=== PATIENT | male | born 1965 | race Asian ===

== ENCOUNTER 2017-12-11 14:22 | Inpatient (IN) | payer OTHER ==
[2017-12-11 14:28] VITALS: TEMP 98.3
[2017-12-11] MEDS ORDERED: LABETALOL HCL 5 MG/1 ML (100MG/20 ML VIAL) IVPUSH ONE (14:38)
--- NOTE | 2017-12-11 14:50 | PDOC ---
History of Present Illness - General Chief Complaint: CVA/TIA Stated Complaint: CVA/TIA Time Seen by Provider: 12/11/17 14:29 - History of Present Illness Initial Comments: 12/11/17 14:45 MR. iPerre is a 52 yo male w/ pmh of HLD, HTN, DM who presents complaining of a 1 hour 20 minute history of left sided vision loss. He reports it started precisely at 1300 while he was eating lunch and has persisted. He is currently unable to see anything out of the left side of either eye. The patient denies chest pain, shortness of breath, headache and dizziness. Denies fever, chills, nausea, vomit, diarrhea and constipation. Denies dysuria, frequency, urgency and hematuria. Allergies: NKDA Past History - Past Medical History Allergies/Adverse Reactions: Allergies Allergy/AdvReac Type Severity Reaction Status Date / Time No Known Allergies Allergy Verified 12/11/17 14:28 Home Medications: Ambulatory Orders Atorvastatin Ca [Lipitor] 40 mg PO HS 11/21/15 Losartan Potassium 50 mg PO HS 11/21/15 Metformin HCl 500 mg PO DAILY 11/21/15 Cardiac Disorders: Yes (VALVE DISEASE) COPD: No Diabetes: Yes (NIDDM) HTN: Yes Hypercholesterolemia: Yes Liver Disease: Yes (FATTY LIVER) - Surgical History Neurologic Surgery: Yes (BACK SURGERY L4-L5, RIGHT WRIST ORIF) Orthopedic Surgery: Yes (SURGERY OF RT HAND FX) - Suicide/Smoking/Psychosocial Hx Smoking History: Current some day smoker Have you smoked in the past 12 months: Yes Number of Cigarettes Smoked Daily: 2 If you are a former smoker, when did you quit?: 2013 Information on smoking cessation initiated: No Hx Alcohol Use: No Drug/Substance Use Hx: No Substance Use Type: None Review of Systems - Review of Systems Comments:: 12/11/17 14:47 GENERAL/CONSTITUTIONAL: No fever or chills. No weakness. HEAD, EYES, EARS, NOSE AND THROAT: +Left sided vision loss for 1 hour 20 minutes. CARDIOVASCULAR: No chest pain or shortness of breath RESPIRATORY: No cough, wheezing, or hemoptysis. GASTROINTESTINAL: No nausea, vomiting, diarrhea or constipation. GENITOURINARY: No dysuria, frequency, or change in urination. MUSCULOSKELETAL: No joint or muscle swelling or pain. No neck or back pain. SKIN: No rash NEUROLOGIC: No headache, vertigo, loss of consciousness, or change in strength/ sensation. ENDOCRINE: No increased thirst. No abnormal weight change HEMATOLOGIC/LYMPHATIC: No anemia, easy bleeding, or history of blood clots. ALLERGIC/IMMUNOLOGIC: No hives or skin allergy. *Physical Exam - Vital Signs Last Vital Signs Temp Pulse Resp BP Pulse Ox 98.3 F 69 20 195/69 100 12/11/17 14:26 12/11/17 14:26 12/11/17 14:26 12/11/17 14:26 12/11/17 14:26 - Physical Exam Comments: 12/11/17 14:48 GENERAL: +Minor slurring of words. Awake, alert, and fully oriented HEAD: No signs of trauma, normocephalic, atraumatic EYES: Bilateral left sided field defect. ENT: Auricles normal inspection, hearing grossly normal, nares patent, oropharynx clear without exudates. Moist mucosa NECK: Normal ROM, supple, no lymphadenopathy, JVD, or masses LUNGS: No distress, speaks full sentences, clear to auscultation bilaterally HEART: Regular rate and rhythm, normal S1 and S2, no murmurs, rubs or gallops, peripheral pulses normal and equal bilaterally. ABDOMEN: Soft, nontender, normoactive bowel sounds. No guarding, no rebound. No masses EXTREMITIES: Normal inspection, Normal range of motion, no edema. No clubbing or cyanosis. NEUROLOGICAL: Cranial nerves II through XII grossly intact. Normal speech, normal gait, no focal sensorimotor deficits SKIN: Warm, Dry, normal turgor, no rashes or lesions noted. 12/11/17 14:49 NIH Stroke Scale - Last Known Well Date/Time & Onset Date Last Known Well: 12/11/17 Time Last Known Well: 13:00 - Initial Evaluation Level of consciousness: Alert Ask patient the month and their age: Answers both correctly Ask patient to open & close eyes; make fist and let go: Obeys both correctly Best gaze (horizontal eye movement): Normal Visual field testing: Bilateral hemianopia (blind including cortical blindness) Facial paresis (Show teeth/raise eyebrows/close eyes tight): Normal symmetrical movement Motor Function: Left Arm: Normal Motor Function: Right Arm: Normal (extends arm 90 (or 45) degrees for 10 seconds without drift Motor Function: Left Leg: Normal (extends leg 30 degrees for 5 seconds without drift) Motor Function: Right Leg: Normal (extends leg 30 degrees for 5 seconds without drift) Limb Ataxia: No ataxia Sensory(Use pinprick test arms,legs,trunk,face/side to side): Normal Best language (Describe picture, name items, read sentences): No Aphasia Dysarthria (read several words): Mild to moderate slurring of words Extinction and Inattention: No abnormality - Total Score NIH Stroke Scale Score: 4 tPA Exclusion Checklist 0-3hr - Time Elapsed Date last known well: 12/11/17 Time last known well: 13:00 Elaspsed time: Day(s) and 4 Hour(s) and 39 Minutes - Thrombolytic Therapy Candidate Is the patient eligible for Thrombolytic Therapy?: Yes - Exclusion Criteria 0-3hr SBP greater than 185 or DBP greater than 110mmHg despite tx: No Recent IC/spinal surgery,head trauma or stroke w/in last 3mo: No Hx of previous IC hemorrhage, IC neoplasm, AVM or aneurysm: No Active internal bleeding: No Blding diathesis(low plt ct, inc PTT,INR>1.7 or use of NOAC): No Symptoms suggest subarachnoid hemorrhage: No CT demonstrates multilobar infarct(>1/3 cerebral hemiphere): No Arterial puncture at noncompressible site in previous 7 days: No Blood glucose concentration less than 50mg/dL (2.7mmol/L): No - Relative Exclusion Criteria 0-3h Life expectancy <1yr/severe co-morbid illness/CAR SALESMAN on admit: No : No Patient/family refused: No Rapid improvement: No Stroke severity too mild: No Recent acute IL (w/in previous 3 months): No Seizure at onset with postictal residual neuro impairments: No Major surgery or serious trauma w/in previous 14 days: No Recent GI or hemorrhage (w/in previous 21 days): No Critical Care Time/MDM Note - Medical Decision Making Note: 12/11/17 16:09 Mr. Pierre is a 52 yo male w/ pmh as above who presents w/ acute onset left sided vision impairment concerning for stroke. No hemorrhage noted on CT. Neurology consulted; due to visual nature of impairment TPA recommended for acute treatment. Agree with assessment; discussed with patient and family and obtained consent. TPA given. Neurology recommended Brain MRA for further evaluation. Patient reporting no resolution of symptoms at this time. 12/11/17 17:19 Patient complaining of headache with difficulty reporting his birthday. CT Head ordered for further evaluation. 12/11/17 17:39 No hugo bleed observable (by me) during head CT, will await radiologist confirmation. Patient now able to report birthday and reports minor resolution of headache. Head/Neck CTA performed after head CT. Patient transferred to ICU. Discharge Disposition - Diagnosis Cerebrovascular accident (CVA) Qualifiers: CVA mechanism: unspecified Qualified Code(s): I63.9 - Cerebral infarction, unspecified - Discharge Dispostion Admit: Yes - Referrals - Patient Instructions - Post Discharge Activity
[2017-12-11] MEDS ORDERED: ALTEPLASE 100 MG VIAL IVPB ONE (14:52)
[2017-12-11] MEDS ORDERED: LABETALOL HCL 5 MG/1 ML (200MG/40ML VIAL) IVPB ONE (14:55)
[2017-12-11] MEDS ORDERED: ALTEPLASE 100MG 100 MG IVPB ONE (14:56)
[2017-12-11 15:16] LABS: BASO % 0.6 % (0-2.0); EOS % 4.5 % (0-4.5); HEMATOCRIT 44.3 % (35.4-49); HEMOGLOBIN 14.4 GM/dL (11.7-16.9); LYMPH % 28.2 % (8-40); MCH 29.4 pg (25.7-33.7); MCHC 32.4 g/dl (32.0-35.9); MEAN CELL VOLUME 90.7 fl (80-96); MEAN PLT VOLUME 10.4 fl (7.5-11.1); MONO % 8.4 % (3.8-10.2); NEUT % 58.3 % (42.8-82.8); PLATELET COUNT 204 K/MM3 (134-434); RBC 4.89 M/mm3 (4.00-5.60); RDW 12.7 % (11.9-15.9); WHITE BLOOD COUNT 7.9 K/mm3 (4.0-10.0)
[2017-12-11 15:23] LABS: INR 1.04 (0.82-1.09); PROTHROMBIN TIME (PATIENT) 11.7 SEC (9.98-11.88)
[2017-12-11 15:30] LABS: ALBUMIN 3.7 g/dl (3.4-5.0); ANION GAP 2 (8-16); BILIRUBIN,TOTAL 0.7 mg/dL (0.2-1.0); BLOOD UREA NITROGEN 13 mg/dL (7-18); CALCIUM 8.2 mg/dL (8.5-10.1); CHLORIDE 103 mmol/L (98-107); CHOLESTEROL 179 mg/dL (50-200); CO2 31 mmol/L (21-32); CREATININE 0.7 mg/dL (0.7-1.3); GLUCOSE,RANDOM 181 mg/dL (74-106); LDL CHOLESTEROL (ONLY SJRH) 96 mg/dL (5-100); SGPT/ALT 29 U/L (12-78); SODIUM 136 mmol/L (136-145); TOT PROT 7.3 g/dl (6.4-8.2); TRIGLYCERIDES 157 mg/dL (35-160)
--- NOTE | 2017-12-11 15:30 | PDOC ---
Attending Attestation - Resident Resident Name: Lars Lambert - ED Attending Attestation I have performed the following: I have examined & evaluated the patient, The case was reviewed & discussed with the resident, I agree w/resident's findings & plan, Exceptions are as noted - HPI HPI: 12/11/17 15:29 52-year-old male with history of diabetes, hypertension, borderline for cholesterolemia presents with acute onset of right visual hemianopsia at 1 PM while eating lunch. No headache, questionable slurred speech noticed by his , and nurse. No other chest pain or palpitations, no motor deficits. Patient seen immediately upon arrival at 2:28 PM - Physicial Exam PE: 12/11/17 15:30 Elevated blood pressure at triage Exam consistent with right hemianopsia Very subtle slurred speech Motor 5 out of 5 4 extremities, gait stable - Critical Care Time Total Critical Care Time: 95 Critical Care Statement: The care of this patient involved high complexity decision making to prevent further life threatening deterioration of the patient 's condition and/or to evaluate & treat vital organ system(s) failure or risk of failure. - Medical Decision Making 12/11/17 15:31 Patient seen and evaluated with the resident. I agree with the overall evaluation, assessment, and management with the following summary of visit: 52-year-old male with risk factors for CVA presents with acute onset right visual field deficit at 1 PM, about 1.5 hours prior to arrival. Code sood activated Case discussed with Dr. Cooper of neurology, CT shows no acute pathology, agrees with TPA given the significant deficit in this otherwise high functioning 52-year-old male All risks and benefits were discussed with the patient and his , who was at the bedside. They agree with proceeding with TPA. Patient was given labetalol IV given his initially elevated blood pressure at triage. His blood pressure improved to 150 systolic. TPA bolus was administered at 3 PM and drip began according to protocol We'll proceed with ICU admission, neurology at bedside Heart Score/ECG Review #1 ECG reviewed & interpreted by me at: 15:14 General ECG Interpretation: Sinus Rhythm, Normal Rate (60), Normal Intervals ( qtc 416, LVH), No acute ischemic changes (early repolarization abnormality) NIH Stroke Scale - Last Known Well Date/Time & Onset Date Last Known Well: 12/11/17 Time Last Known Well: 13:00 - Initial Evaluation Level of consciousness: Alert Ask patient the month and their age: Answers both correctly Ask patient to open & close eyes; make fist and let go: Obeys both correctly Best gaze (horizontal eye movement): Normal Visual field testing: Complete hemianopia Facial paresis (Show teeth/raise eyebrows/close eyes tight): Normal symmetrical movement Motor Function: Left Arm: Normal Motor Function: Right Arm: Normal (extends arm 90 (or 45) degrees for 10 seconds without drift Motor Function: Left Leg: Normal (extends leg 30 degrees for 5 seconds without drift) Motor Function: Right Leg: Normal (extends leg 30 degrees for 5 seconds without drift) Limb Ataxia: No ataxia Sensory(Use pinprick test arms,legs,trunk,face/side to side): Normal Best language (Describe picture, name items, read sentences): No Aphasia Dysarthria (read several words): Mild to moderate slurring of words Extinction and Inattention: No abnormality - Total Score NIH Stroke Scale Score: 3 tPA Exclusion Checklist 0-3hr - Thrombolytic Therapy Candidate Is the patient eligible for Thrombolytic Therapy?: Yes - Exclusion Criteria 0-3hr SBP greater than 185 or DBP greater than 110mmHg despite tx: No Recent IC/spinal surgery,head trauma or stroke w/in last 3mo: No Hx of previous IC hemorrhage, IC neoplasm, AVM or aneurysm: No Active internal bleeding: No Blding diathesis(low plt ct, inc PTT,INR>1.7 or use of NOAC): No Symptoms suggest subarachnoid hemorrhage: No CT demonstrates multilobar infarct(>1/3 cerebral hemiphere): No Arterial puncture at noncompressible site in previous 7 days: No Blood glucose concentration less than 50mg/dL (2.7mmol/L): No - Relative Exclusion Criteria 0-3h Life expectancy <1yr/severe co-morbid illness/SCIENTIFIC LINGUIST on admit: No : No Patient/family refused: No Rapid improvement: No Stroke severity too mild: No Recent acute CO (w/in previous 3 months): No Seizure at onset with postictal residual neuro impairments: No Major surgery or serious trauma w/in previous 14 days: No Recent GI or hemorrhage (w/in previous 21 days): No
[2017-12-11 15:31] LABS: ALK PHOS 74 U/L (45-117); HDL CHOLESTEROL 70 mg/dL (40-60)
[2017-12-11 15:42] LABS: URINE APPEARANCE CLEAR; URINE BILIRUBIN NEGATIVE (NEGATIVE); URINE BLOOD 1+ (NEGATIVE); URINE COLOR COLORLESS; URINE GLUCOSE (UA) 2+ (NEGATIVE); URINE KETONE NEGATIVE (NEGATIVE); URINE LEUK ESTERASE NEGATIVE (NEGATIVE); URINE NITRITE NEGATIVE (NEGATIVE); URINE PROTEIN NEGATIVE (NEGATIVE); URINE UROBILINOGEN NEGATIVE mg/dL (0.2-1.0)
[2017-12-11 15:48] LABS: POTASSIUM 4.4 mmol/L (3.5-5.1)
[2017-12-11 15:49] LABS: SGOT/AST 17 U/L (15-37)
--- NOTE | 2017-12-11 15:52 | CON.NEURO ---
Consult - Alcohol/Substance Use Hx Alcohol Use: No - Smoking History Smoking history: Current some day smoker Have you smoked in the past 12 months: Yes Aproximately how many cigarettes per day: 2 If you are a former smoker, when did you quit?: 2013 Home Medications - Allergies Allergies/Adverse Reactions: Allergies Allergy/AdvReac Type Severity Reaction Status Date / Time No Known Allergies Allergy Verified 12/11/17 14:28 - Home Medications Home Medications: Ambulatory Orders Atorvastatin Ca [Lipitor] 40 mg PO HS 11/21/15 Losartan Potassium 50 mg PO HS 11/21/15 Metformin HCl 500 mg PO DAILY 11/21/15 Physical Exam-Neuro Vital Signs: Vital Signs Temperature 98.3 F 12/11/17 14:26 Pulse Rate 69 12/11/17 14:26 Respiratory Rate 20 12/11/17 14:26 Blood Pressure 195/69 12/11/17 14:26 O2 Sat by Pulse Oximetry (%) 99 12/11/17 15:20 Labs: CBC, BMP 12/11/17 15:00 INR, PTT INR 1.04 (0.82-1.09) 12/11/17 15:00 Assessment/Plan cc unable to see at 1 pm HPI 52 year old male history of HLD, HTN, DM , no stroke or mi in past. He was eating his lunch suddenly he felt difficulty vision. He was brought to hospital and found to have right sided hemianospsia. His initial ct scan was normal. He was started on tpa . He also felt to have speech difficulty. His is nurse at [employer]. His initial blood pressure was high and he was given iv labetalol. NKDA PHM as above SH,ROS ,FH reviewed in chart Ambulatory Orders Aspirin Coated [Ecotrin -] 81 mg PO PRN PRN 11/21/15 Atorvastatin Ca [Lipitor] 20 mg PO HS 11/21/15 Losartan Potassium 25 mg PO HS 11/21/15 Metformin HCl 500 mg PO DAILY 11/21/15 Acetaminophen W/ Codeine #3 [Tylenol # 3] 1 - 2 combo PO Q4H PRN #15 tablet MDD 6 03/26/16 Cyclobenzaprine HCl [Flexeril] 10 mg PO TID #15 tablet 03/26/16 Glimepiride [Amaryl -] 2 mg PO DAILY 03/26/16 Neurological Examination Alert oriented x 3, able to follow command, feel speech is slightly dysarthric and left sided facial droopiness. eomi, pupils is reactive, right sided hemianospia ? left facial droopiness, moving all extremity and sensation is normal NIH SCORE is 3 AND able to swallow CT unreemarkable Assessment, Suspect left occopital infarct, risk factor include DM,HTN HYperlipidemia. Plan-- Patient was given tpa , given hemianopsia would create disability, though nih score was low - ICU admission, bp and neuro checks - no aspirin for 24 hour - repeat ct head tomorrow am - CTA of neck for large vessel occlusion - Increase lipitor to 80 mg once a day - Speech, PT and dvt prophylaxis Stroke Education would continue to follow with primary team Robina for consult
--- NOTE | 2017-12-11 16:02 | EKG ---
Test Reason : Blood Pressure : / mmHG Vent. Rate : 060 BPM Atrial Rate : 060 BPM P-R Int : 160 ms QRS Dur : 104 ms QT Int : 416 ms P-R-T Axes : -01 038 009 degrees QTc Int : 416 ms NORMAL SINUS RHYTHM VOLTAGE CRITERIA FOR LEFT VENTRICULAR HYPERTROPHY ABNORMAL ECG WHEN COMPARED WITH ECG OF 25-JAN-2008 13:01, NONSPECIFIC T WAVE ABNORMALITY NOW EVIDENT IN LATERAL LEADS Confirmed by DARIEN LOUIE, CAMELIA ([id number]) on 12/11/2017 4:01:50 PM Referred By: Confirmed By:CAMELIA LEDEZMA MD
[2017-12-11] MEDS ORDERED: ACETAMINOPHEN 325 MG TABLET (FP) PO PRN (16:24)
[2017-12-11] MEDS ORDERED: INSULIN SLIDING SCALE (NOVOLOG) 1 VIAL SQ SCH (16:30)
--- NOTE | 2017-12-11 16:33 | HP ---
Admitting History and Physical - Primary Care Physician PCP: Albert Miller - Admission Chief Complaint: I can't see the right side History of Present Illness: Mr Pierre is a very pleasant 52 year old male who comes in with loss of vision on the right side. He says he was at work when he suddenly could not see his right field of vision. It was both eyes. Aside from this he had no other concerns. He denies lightheadedness, dizziness, confusion, difficulty word finding or speaking, loss of hearing or hearing changes, chest pain, shortness of breath, nausea, vomiting, abdominal pain, constipation, diarrhea, difficulty or pain on urination, incontinence, swelling, weakness, or paresthesias. He was hypertensive in the ED and received labetalol. He also received tPA in the ED as well. He continues to have loss of his right visual lombardo. History Source: Patient Limitations to Obtaining History: No Limitations - Past Medical History Cardiovascular: Yes: HTN, Hyperlipdemia Endocrine: Yes: Diabetes Mellitus - Past Surgical History Past Surgical History: Yes: Laminectomy - Smoking History Smoking history: Current some day smoker Have you smoked in the past 12 months: Yes Aproximately how many cigarettes per day: 2 If you are a former smoker, when did you quit?: 2014 - Alcohol/Substance Use Hx Alcohol Use: Yes (occasional) History of Substance Use: reports: None - Social History Usual Living Arrangement: Yes: With Spouse ADL: Independent History of Recent Travel: No Home Medications - Allergies Allergies/Adverse Reactions: Allergies Allergy/AdvReac Type Severity Reaction Status Date / Time No Known Allergies Allergy Verified 12/11/17 14:28 - Home Medications Home Medications: Ambulatory Orders Atorvastatin Ca [Lipitor] 40 mg PO HS 11/21/15 Losartan Potassium 50 mg PO HS 11/21/15 Metformin HCl 500 mg PO DAILY 11/21/15 Family Disease History - Family Disease History Family Disease History: Diabetes: Brother (HTN, HLD), Heart Disease: Brother Review of Systems Findings/Remarks: Full review of systems obtained, as per HPI and otherwise negative Physical Examination Vital Signs: Vital Signs Temperature 36.8 C 12/11/17 14:26 Pulse Rate 60 12/11/17 16:15 Respiratory Rate 16 12/11/17 16:15 Blood Pressure 135/49 12/11/17 16:15 O2 Sat by Pulse Oximetry (%) 100 12/11/17 16:15 Constitutional: Yes: Well Nourished, No Distress, Calm Eyes: Yes: Conjunctiva Clear, EOM Intact, PERRL, Other (R visual loss) HENT: Yes: Atraumatic, Normocephalic Cardiovascular: Yes: Regular Rate and Rhythm. No: Gallop, Murmur, Rub Respiratory: Yes: Regular, CTA Bilaterally. No: Rales, Rhonchi, Wheezes Gastrointestinal: Yes: Normal Bowel Sounds, Soft. No: Distention, Tenderness Extremities: Yes: WNL Edema: No ...Motor Strength: WNL Labs: CBC, BMP 12/11/17 15:00 12/11/17 15:00 Imaging - Results Cat Scan: Report Reviewed, Image Reviewed Problem List - Problems (1) Cerebrovascular accident (CVA) Assessment/Plan: -case d/w neurology -received tPA in the ED -still with visual loss -admit to ICU -speech and physical therapy consult -holding aspirin secondary to tPA given -increase lipitor to 80mg -ECHO and carotid ultrasound ordered -repeat head CT tomorrow Code(s): I63.9 - CEREBRAL INFARCTION, UNSPECIFIED Qualifiers: CVA mechanism: unspecified Qualified Code(s): I63.9 - Cerebral infarction, unspecified (2) HTN (hypertension) Assessment/Plan: -maintain BP less than 185/100 -received labetolol in the ED, now controlled -continue cozaar Code(s): I10 - ESSENTIAL (PRIMARY) HYPERTENSION (3) HLD (hyperlipidemia) Assessment/Plan: -increase lipitor to 80mg qhs Code(s): E78.5 - HYPERLIPIDEMIA, UNSPECIFIED (4) Diabetes mellitus Assessment/Plan: -diabetic diet -continue metformin and amaryl -FSBS and SSI -check Hgb A1c Code(s): E11.9 - TYPE 2 DIABETES MELLITUS WITHOUT COMPLICATIONS
[2017-12-11 18:21] VITALS: BMI 22.8
[2017-12-11 19:53] VITALS: BP 141/57; PULSE 59
[2017-12-11] MEDS ORDERED: CHLORHEXIDINE GLUCONATE 4% CLEANSER FOR DECOLONIZATION TP SCH ×2 (22:00)
[2017-12-11] MEDS ORDERED: MUPIROCIN 2% TOPICAL OINTMENT FOR DECOLONIZATION NS SCH (22:00)
[2017-12-11] MEDS ORDERED: ATORVASTATIN CA 80 MG TABLET (FP) PO SCH (22:00)
[2017-12-11] MEDS ORDERED: LOSARTAN POTASSIUM 25 MG TABLET PO SCH (22:00)
[2017-12-12] MEDS ORDERED: GLIMEPIRIDE 2 MG TABLET (FP) PO SCH (07:00)
[2017-12-12] MEDS ORDERED: metFORMIN HCL 500 MG TABLET (FP) PO SCH (07:00)
== END 2017-12-11 20:04 | disposition short-term general hospital (02) | DRG 65 ==
LOC: JER 14:22 → JERBED 16:14 → JICU 17:45
PROVIDERS: ADMIT Internal Medicine; ATTEND Internal Medicine
DX: I63.9 Cerebral infarction, unspecified (principal); Z92.82 Status post administration of tPA (rtPA) in a different facility within the last 24 hours prior to admission to current facility; K76.0 Fatty (change of) liver, not elsewhere classified; H53.461 Homonymous bilateral field defects, right side; R29.810 Facial weakness; R47.1 Dysarthria and anarthria; F17.210 Nicotine dependence, cigarettes, uncomplicated; I10 Essential (primary) hypertension; E11.9 Type 2 diabetes mellitus without complications; Z79.84 Long term (current) use of oral hypoglycemic drugs; E78.5 Hyperlipidemia, unspecified; R47.89 Other speech disturbances
CPT/HCPCS: 36415; 70450-TC; 70496-TC; 70498-TC; 80053; 81003; 81015; 82465; 82550; 83718; 83721; 84478; 84484; 85025; 85610; 86850; 86900; 86901; 93005; 93010; 99285-25; J2997

== ENCOUNTER 2019-12-11 16:47 | Inpatient (IN) | payer OTHER ==
[2019-12-11 17:09] VITALS: BMI 23.6
--- NOTE | 2019-12-11 17:45 | PDOC ---
History of Present Illness - General Chief Complaint: Rash Stated Complaint: RASH Time Seen by Provider: 12/11/19 17:21 Past History - Past Medical History Allergies/Adverse Reactions: Allergies Allergy/AdvReac Type Severity Reaction Status Date / Time No Known Allergies Allergy Verified 12/11/17 14:28 Home Medications: Ambulatory Orders Atorvastatin Ca [Lipitor] 40 mg PO HS 11/21/15 Losartan Potassium 75 mg PO DAILY 11/21/15 metFORMIN HCL [Metformin HCl] 500 mg PO DAILY 11/21/15 Aspirin [ASA -] 81 mg PO DAILY 12/09/19 Glimepiride 2 mg PO DAILY 12/09/19 Metoprolol Tartrate 37.5 mg PO DAILY 12/09/19 Cardiac Disorders: Yes (VALVE DISEASE) COPD: No Diabetes: Yes (NIDDM) HTN: Yes Hypercholesterolemia: Yes Liver Disease: Yes (FATTY LIVER) - Surgical History Cardiac Surgery: Yes (CABG, Aorta & matrial valve) Neurologic Surgery: Yes (BACK SURGERY L4-L5, RIGHT WRIST ORIF) Orthopedic Surgery: Yes (SURGERY OF RT HAND FX) - Immunization History Immunization Up to Date: No - Psycho Social/Smoking Cessation Hx Smoking History: Never smoked Have you smoked in the past 12 months: No Number of Cigarettes Smoked Daily: 2 If you are a former smoker, when did you quit?: 2013 Information on smoking cessation initiated: No Hx Alcohol Use: No Drug/Substance Use Hx: No Substance Use Type: None *Physical Exam - Vital Signs Last Vital Signs Temp Pulse Resp BP Pulse Ox 97.8 F 64 16 126/74 99 12/11/19 16:53 12/11/19 16:53 12/11/19 16:53 12/11/19 16:53 12/11/19 16:53 ED Treatment Course - LABORATORY CBC & Chemistry Diagram: 12/12/19 00:00 12/12/19 00:00 Medical Decision Making - Medical Decision Making 12/11/19 17:23 HPI: 54yo M hx HTN, HLD, DM, CVA, s/p TAVR for aortic valve tumor (on aspirin), presents from home with 10 day gradual onset worsening/spreading diffuse nonblanching pruritic and painful (burning type) nontender palpable purpura on BLEs and BUEs from feet to thighs and hands to shoulders (sparing soles and palms), with intermittent b/l feet and hand edema, and intermittent cold feet b/ l, started 12-24hrs after [facility] 19hr flight. Flight on 11/30, arriving on 12/01, noticed small nontender nonpainful nonpruritic red dots on L foot. Dots gradually spread up LLE and on/up RLE. On 12/03/19 it became pruritic and painful. Today it spread to arms. Pt took 2 days of Fluticasone and muciprocin cream in [facility]. Pt came here on 12/09/19 after returning from [facility] and was referred to derm; pt saw derm Dr Evans on 12/09/19 and got a biopsy (results Fri ) and started on muciprocin cream, doxycycline, and benadryl - taking all and rash still worsening, no improvement. Wearing traditional attire in [place] so legs were covered. Family members who traveled with him have no similar sx. Denies sick contacts. Fully immunized. Denies outdoor activity, bug bites, swimming outdoors (freshwater or ocean), animal contact, plant contact, new meds prior to sx, new detergents or soaps or lotions, hx allergic reactions , malaria prophylaxis or other prophylaxis, existing skin conditions. Denies purulence, hx DVT/PE, hemoptysis, hormone use, calf tenderness, fever, chills, fatigue, headache, dizziness, numbness/tingling, weakness, vision changes, shortness of breath, cough, chest pain, palpitations, abdominal pain, blood in stool, diarrhea, constipation, nausea, vomiting, dysuria, hematuria, confusion. ROS: Constitutional: Negative for chills, fever, fatigue, diaphoresis. HENT: Negative for sore throat, rhinorrhea, congestion. Eyes: Negative for visual disturbance. Respiratory: Negative for shortness of breath, cough, and wheezing. Cardiovascular: Negative for chest pain, palpitations, and leg swelling. Gastrointestinal: Negative for abdominal pain, blood in stool, constipation, diarrhea, nausea, and vomiting. Genitourinary: Negative for dysuria, flank pain, and hematuria. Musculoskeletal: Negative for myalgias, back pain, and neck pain. Skin: Positive for pruritic painful rash. Neurological: Negative for light-headedness, dizziness, vertigo, syncope, weakness, numbness and headaches. Psychiatric/Behavioral: Negative for behavioral problems and confusion. PE: Gen: Alert, NAD, uncomfortable-appearing, itching HEENT: PERRL, EOMI, MMM, NCAT. No conjunctival pallor. Sclera are non-icteric. Oropharynx is clear. CV: Regular rate and rhythm. No murmurs, rubs, or gallops. PULM: No resp distress. CTAB, no wheezes, rales, or rhonchi. ABD: soft, NT/ND, no rebound tenderness or guarding, no CVA tenderness. BACK: No TTP of c/t/l-spine. No step-offs or deformities. MSK: No bony deformities. 2+ pulses in all extremities. NEURO: AAOx3. PERRL. No gross CN deficits. Strength and sensation grossly intact throughout. EXTREMITIES: No cyanosis. No clubbing. No edema. No calf tenderness. PSYCH: Normal mood and thought pattern. SKIN: Warm and dry. Normal capillary refill. No jaundice. Diffuse nonblanching pruritic nontender palpable purpura BLEs and BUEs without purulence. MDM: 54yo M hx HTN, HLD, DM, CVA, s/p TAVR for aortic valve tumor (on aspirin), presents from home with 10 day gradual onset worsening/spreading diffuse nonblanching pruritic and painful (burning type) nontender palpable purpura on BLEs and BUEs from feet to thighs and hands to shoulders (sparing soles and palms), with intermittent b/l feet and hand edema, and intermittent cold feet b/ l, started 12-24hrs after [facility] 19hr flight. Hemodynamically stable, afebrile. No mucocutaneous involvement. Spares soles and palms. No s/s of systemic infection. Ddx: small vessel cutaneous vasculitis (ANCA-associated, paraneoplastic, Henoch Schonlein, idiopathic, medication-induced, subacute bacterial endocarditis [of note, s/p TAVR], HCV, SLE, Sjogrens, vasculopathy, choelsterol emboli, Buerger' s disease), infectious rash, less likely DVT, evaluate for damage other organs 2 /2 vasculitis (eg with UA) -EKG -CBC,CMP,Coags,ESR/CRP,UA -IV Benadryl -BLE duplex -Consider BCx and abx -Consider Echo r/o endocarditis -Consult ID Dr Cerna (text) -Dispo: pending w/u 12/11/19 19:07 Signed out pt to Dr Krishnan. Discharge - Discharge Information Problems reviewed: Yes Clinical Impression/Diagnosis: Rash Condition: Stable - Follow up/Referral - Patient Discharge Instructions - Post Discharge Activity
[2019-12-11 18:17] LABS: BASO % 0.5 % (0-2.0); EOS % 5.3 % (0-4.5); HEMATOCRIT 44.8 % (35.4-49); HEMOGLOBIN 14.6 GM/dL (11.7-16.9); LYMPH % 25.8 % (8-40); MCH 29.4 pg (25.7-33.7); MCHC 32.5 g/dl (32.0-35.9); MEAN CELL VOLUME 90.4 fl (80-96); MEAN PLT VOLUME 8.9 fl (7.5-11.1); MONO % 8.9 % (3.8-10.2); NEUT % 59.5 % (42.8-82.8); PLATELET COUNT 233 K/MM3 (134-434); RBC 4.96 M/mm3 (4.00-5.60); RDW 13.5 % (11.9-15.9); WHITE BLOOD COUNT 11.1 K/mm3 (4.0-10.0)
[2019-12-11 18:29] LABS: INR 0.95 (0.83-1.09); PROTHROMBIN TIME (PATIENT) 11.2 SEC (9.7-13.0)
[2019-12-11 18:59] LABS: ALBUMIN 3.8 g/dl (3.4-5.0); BILIRUBIN,TOTAL 0.7 mg/dL (0.2-1); BLOOD UREA NITROGEN 12.2 mg/dL (7-18); CALCIUM 9.2 mg/dL (8.5-10.1); CREATININE 0.8 mg/dL (0.55-1.3); POTASSIUM 4.1 mmol/L (3.5-5.1); TOT PROT 7.5 g/dl (6.4-8.2)
--- NOTE | 2019-12-11 19:12 | PDOC ---
*Physical Exam - Vital Signs Last Vital Signs Temp Pulse Resp BP Pulse Ox 97.8 F 64 16 126/74 99 12/11/19 16:53 12/11/19 16:53 12/11/19 16:53 12/11/19 16:53 12/11/19 18:57 ED Treatment Course - LABORATORY CBC & Chemistry Diagram: 12/11/19 18:00 12/11/19 18:00 - ADDITIONAL ORDERS Additional order review: Laboratory Results 12/11/19 12/11/19 18:00 18:00 PT with INR 11.20 INR 0.95 Sodium 138 Potassium 4.1 Chloride 101 Carbon Dioxide 31 Anion Gap 6 L BUN 12.2 Creatinine 0.8 Est GFR (CKD-EPI)AfAm 118.20 Est GFR (CKD-EPI)NonAf 101.99 Random Glucose 155 H Calcium 9.2 Total Bilirubin 0.7 AST 19 ALT 43 Alkaline Phosphatase 89 Total Protein 7.5 Albumin 3.8 12/11/19 18:00 RBC 4.96 MCV 90.4 MCHC 32.5 RDW 13.5 MPV 8.9 D Neutrophils % 59.5 Lymphocytes % 25.8 Monocytes % 8.9 Eosinophils % 5.3 H Basophils % 0.5 - Medications Given in the ED: ED Medications Discontinued Medications Generic Name Dose Route Start Last Admin Trade Name Freq PRN Reason Stop Dose Admin Diphenhydramine HCl 25 mg 12/11/19 17:46 12/11/19 17:50 Benadryl Injection - IVPUSH 12/11/19 17:47 25 mg ONCE ONE Administration Medical Decision Making - Medical Decision Making 12/11/19 19:10 EKG sinus bradycardia, TWI V5-6, HR 56, QTc 416 -CBC,CMP,Coags,ESR/CRP,UA -BLE duplex WBC 11.1, elevated eosinophils 5.3, normal platelet 430/Hgb 14/CRP 0.3/ESR 3 --- Signed out from day team 54yo M hx HTN, HLD, DM, CVA, s/p TAVR for aortic valve tumor (on aspirin), presents from home with 10 day spreading diffuse nonblanching pruritic/burning/ painful palpable purpura BLE and BUE with intermittent nam feet and hand edema and nam cold feet. Neurovascular intact. Ddx: small vessel cutaneous vasculitis (ANCA-associated, paraneoplastic, Henoch Schonlein, idiopathic, medication-induced, subacute bacterial endocarditis [hx aortic valve replacement], HCV, SLE, Sjogrens, vasculopathy, choelsterol emboli , Buerger's disease). Low concern for DVT (negative duplex US) Elevated WBC 11.1, eosinophils 5.3, wnl platelet 430/Hgb 14/CRP 0.3/ESR 3/LFTs Given 50 benadryl for itching, vancomycin Consulted ID Dr Cerna - advised give vanc, blood cultures, echo r/o endocarditis , consult rheum Admitted m/s Dr Marshall for purpuric rash failing outpatient therapy Discharge - Discharge Information Problems reviewed: Yes Clinical Impression/Diagnosis: Rash Condition: Stable - Follow up/Referral - Patient Discharge Instructions - Post Discharge Activity
--- NOTE | 2019-12-11 19:21 | PDOC ---
Documentation entered by Danielito Huerta SCRIBE, acting as scribe for Yuly Cruz MD. Yuly Cruz MD: This documentation has been prepared by the Bradley tarango Nirvannie, SCRIBE, under my direction and personally reviewed by me in its entirety. I confirm that the documentation accurately reflects all work, treatment, procedures, and medical decision making performed by me. Attending Attestation - Resident Resident Name: Yuly Muse - ED Attending Attestation I have performed the following: I have examined & evaluated the patient, The case was reviewed & discussed with the resident, I agree w/resident's findings & plan, Exceptions are as noted - HPI HPI: 12/11/19 19:13 The patient is a year old male, with a significant past medical history of HTN, HLD, DM, CVA, (s/p TAVR for aortic valve tumor on Aspirin), who presents to the emergency department with 9 days of a progressively worsening rash. As per patient, he was evaluated for his symptoms in the ER 3 days ago at which time he was given dermatology followup. Patient notes going to the court abstractor 2 days ago and was given Doxycycline and Mupirocin, compliant for 2 days without relief, prompting his arrival to the ED. Patient endorses his rash has since progressed to the upper extremities and itchiness has worsened. He denies any recent fevers, chills, headache or dizziness. He denies any recent nausea, vomiting, diarrhea or constipation. He denies any recent chest pain or shortness of breath. He denies any recent dysuria, frequency, urgency or hematuria. Allergies: NKDA Primary Care Physician: Dr. Miller - Physicial Exam PE: GENERAL: Awake, alert, and fully oriented, in no acute distress HEAD: No signs of trauma EYES: PERRLA, EOMI, sclera anicteric, conjunctiva clear ENT: Auricles normal inspection, hearing grossly normal, nares patent, oropharynx clear without exudates. Moist mucosa NECK: Normal ROM, supple, no lymphadenopathy, JVD, or masses LUNGS: Breath sounds equal, clear to auscultation bilaterally. No wheezes, and no crackles HEART: Regular rate and rhythm, normal S1 and S2, no murmurs, rubs or gallops ABDOMEN: Soft, nontender, normoactive bowel sounds. No guarding, no rebound. No masses EXTREMITIES: Normal range of motion, no edema. No clubbing or cyanosis. No cords, erythema, or tenderness NEUROLOGICAL: Cranial nerves II through XII grossly intact. Normal speech, normal gait. Motor and sensation intact SKIN: Warm, dry, normal turgor. +Raised purpuric rash to the B/L lower legs, as well as a few scattered lesions to the upper legs and the elbows B/L - Medical Decision Making Pt with recent travel, now presenting with itchy raised purpura. No fever. DDx includes either an infectious rash or possibly a vasculitis. Will obtain labs including ESR/CRP. Will d/w ID.
[2019-12-11 20:01] LABS: ERYTHROCYTE SEDIMENTATION RATE 3 mm/hr (0-20)
[2019-12-11] MEDS ORDERED: VANCOMYCIN 1 GM in D5W (PRE-DOCKED) 1,000 MG/250 ML IVPB ONE (20:24)
[2019-12-11] MEDS ORDERED: VANCOMYCIN 1 GRAM (PRE-DOCKED) 1,000 MG/250 ML BAG IVPB ONE (20:43)
[2019-12-11] MEDS ORDERED: ACETAMINOPHEN 500 MG TABLET (FP) PO ONE (22:05)
[2019-12-11] MEDS ORDERED: ACETAMINOPHEN INJECTION 100 ML IVPB ONE (22:08)
[2019-12-11 23:43] LABS: ACTIVATED PTT 31.2 SECONDS (25.2-36.5)
--- NOTE | 2019-12-12 01:59 | HP ---
CHIEF COMPLAINT:Rash PCP: HISTORY OF PRESENT ILLNESS: 54yo M hx HTN, HLD, DM, CVA, s/p TAVR for aortic valve tumor (on aspirin), Developed purpuric rash which started on lower extremities and feet, itchy, mildly painful and spread up to his knees bilaterally and then to his wrists. When he was in [place] around the new year. First time developed this rash, denied any other symptoms. recently traveled to [facility] and returned on 02 December 2019. Patient was in [place] for a wedding and was there for about 1 [place] in [place] [facility] [place] He did not have any contact with animals or insect bites, denied any entry into fresh water. Has not tried any new medications recently. Denied any other recent travels. His daughter went with him to [place] however did not develop a similar rash.He denied any fever, joint pain. Patient saw java development team lead as outpatient On 12/02/2019 and had biopsy of rash performed, results pending. Was on doxycycline 100 mg twice daily p.o. For about 4 doses as an outpatient and mupirocin without Much help ER course was notable for: (1)Vancomycin (2)Vascular study (3) Recent Travel:Recent travel to [facility] PAST MEDICAL HISTORY:HTN, HLD, DM, CVA, s/p TAVR for aortic valve tumor (on aspirin) PAST SURGICAL HISTORY:TAVR for aortic valve tumor Social History: Smoking:no Alcohol:no Drugs: no Allergies No Known Allergies Allergy (Verified 12/11/17 14:28) HOME MEDICATIONS: Home Medications Medication Instructions Recorded Atorvastatin Ca [Lipitor] 40 mg PO HS 11/21/15 Losartan Potassium 75 mg PO DAILY 11/21/15 metFORMIN HCL [Metformin HCl] 500 mg PO DAILY 11/21/15 Aspirin [ASA -] 81 mg PO DAILY 12/09/19 Glimepiride 2 mg PO DAILY 12/09/19 Metoprolol Tartrate 37.5 mg PO DAILY 12/09/19 REVIEW OF SYSTEMS CONSTITUTIONAL: Absent: fever, chills, diaphoresis, generalized weakness, malaise, loss of appetite, weight change HEENT: Absent: rhinorrhea, nasal congestion, throat pain, throat swelling, difficulty swallowing, mouth swelling, ear pain, eye pain, visual changes CARDIOVASCULAR: Absent: chest pain, syncope, palpitations, irregular heart rate, lightheadedness , peripheral edema RESPIRATORY: Absent: cough, shortness of breath, dyspnea with exertion, orthopnea, wheezing, stridor, hemoptysis GASTROINTESTINAL: Absent: abdominal pain, abdominal distension, nausea, vomiting, diarrhea, constipation, melena, hematochezia GENITOURINARY: Absent: dysuria, frequency, urgency, hesitancy, hematuria, flank pain, genital pain MUSCULOSKELETAL: Absent: myalgia, arthralgia, joint swelling, back pain, neck pain SKIN: Absent: rash, , pallor Present: Itchiness HEMATOLOGIC/IMMUNOLOGIC: Absent: easy bleeding, easy bruising, lymphadenopathy, frequent infections ENDOCRINE: Absent: unexplained weight gain, unexplained weight loss, heat intolerance, cold intolerance NEUROLOGIC: Absent: headache, focal weakness or paresthesias, dizziness, unsteady gait, seizure, mental status changes, bladder or bowel incontinence PSYCHIATRIC: Absent: anxiety, depression, suicidal or homicidal ideation, hallucinations. PHYSICAL EXAMINATION Vital Signs - 24 hr 12/11/19 12/11/19 12/11/19 16:53 18:57 22:14 Temperature 97.8 F Pulse Rate 64 Pulse Rate [ 58 L Apical] Respiratory 16 18 Rate Blood Pressure 126/74 Blood Pressure 134/65 [Left Arm] O2 Sat by Pulse 99 99 100 Oximetry (%) 12/11/19 12/11/19 22:15 23:00 Temperature 98.1 F Pulse Rate 67 Pulse Rate [ Apical] Respiratory 18 Rate Blood Pressure 108/70 Blood Pressure [Left Arm] O2 Sat by Pulse 100 100 Oximetry (%) GENERAL: Awake, alert, and fully oriented, in no acute distress. HEAD: Normal with no signs of trauma. EYES: Pupils equal, round and reactive to light, extraocular movements intact, sclera anicteric, conjunctiva clear. No lid lag. EARS, NOSE, THROAT: Ears normal, nares patent, oropharynx clear without exudates. Moist mucous membranes. NECK: Normal range of motion, supple without lymphadenopathy, JVD, or masses. LUNGS: Breath sounds equal, clear to auscultation bilaterally. No wheezes, and no crackles. No accessory muscle use. HEART: Regular rate and rhythm, normal S1 and S2 without murmur, rub or gallop. ABDOMEN: Soft, nontender, not distended, normoactive bowel sounds, no guarding, no rebound, no masses. No hepatomegaly or splenomegaly. MUSCULOSKELETAL: Normal range of motion at all joints. No bony deformities or tenderness. No CVA tenderness. UPPER EXTREMITIES: Bilateral hand swelling LOWER EXTREMITIES: 2+ pulses, warm, well-perfused. No calf tenderness. No peripheral edema. NEUROLOGICAL: Cranial nerves II-XII intact. Normal speech. Normal gait. PSYCHIATRIC: Cooperative. Good eye contact. Appropriate mood and affect. SKIN: Purpuric rash on lower extremities bilaterally with right leg eschar, bilateral wrist rash Laboratory Results - last 24 hr 12/11/19 12/11/19 12/11/19 18:00 18:00 18:00 WBC 11.1 H RBC 4.96 Hgb 14.6 Hct 44.8 MCV 90.4 MCH 29.4 MCHC 32.5 RDW 13.5 Plt Count 233 MPV 8.9 D Absolute Neuts (auto) 6.6 Neutrophils % 59.5 Lymphocytes % 25.8 Monocytes % 8.9 Eosinophils % 5.3 H Basophils % 0.5 Nucleated RBC % 0 ESR 3 PT with INR 11.20 INR 0.95 PTT (Actin FS) 31.2 Sodium 138 Potassium 4.1 Chloride 101 Carbon Dioxide 31 Anion Gap 6 L BUN 12.2 Creatinine 0.8 Est GFR (CKD-EPI)AfAm 118.20 Est GFR (CKD-EPI)NonAf 101.99 Random Glucose 155 H Calcium 9.2 Total Bilirubin 0.7 AST 19 ALT 43 Alkaline Phosphatase 89 C-Reactive Protein 0.3 Total Protein 7.5 Albumin 3.8 ASSESSMENT/PLAN: Purpuric, itchy rash starting from lower extremities, spreading to wrists bilaterally, acute in onset after recent travel to [place]. Right leg eschar suspect possible Rickettsia, versus vasculitis. Atarax prn for itchiness Follow-up with outpatient java development team lead for biopsy Ibuprofen 40 mg as needed ESR and CRP AIDE C ANCA, p-ANCA Rickettsia serology if possible ID consult Dermatology evaluation Blood cultures x2 Hepatitis B, C, HIV serology Doxycycline 100 milligrams twice daily IV Chest x-ray Restart home diabetic and an antihypertensive meds Heparin subcutaneously for DVT prophylaxis Visit type - Emergency Visit Emergency Visit: Yes ED Registration Date: 12/11/19 Care time: The patient presented to the Emergency Department on the above date and was hospitalized for further evaluation of their emergent condition. - New Patient This patient is new to me today: Yes Date on this admission: 12/12/19 - Critical Care Critical Care patient: No
[2019-12-12] MEDS ORDERED: SODIUM CHLORIDE 1,000 ML IV SCH (02:00)
[2019-12-12] MEDS ORDERED: IBUPROFEN 400 MG TABLET (FP) PO PRN (03:00)
[2019-12-12] MEDS: hydrOXYzine HCL 10 MG/5 ML LIQUID BULK BOTTLE PO PRN ×2 (03:49→08:56)
[2019-12-12 05:32] LABS: HEMATOCRIT 43.4 % (35.4-49); HEMOGLOBIN 14.2 GM/dL (11.7-16.9); MCH 29.3 pg (25.7-33.7); MCHC 32.6 g/dl (32.0-35.9); MEAN CELL VOLUME 89.7 fl (80-96); MEAN PLT VOLUME 9.5 fl (7.5-11.1); PLATELET COUNT 223 K/MM3 (134-434); RBC 4.84 M/mm3 (4.00-5.60); RDW 13.5 % (11.9-15.9); WHITE BLOOD COUNT 10.7 K/mm3 (4.0-10.0)
[2019-12-12 05:42] LABS: URINE APPEARANCE CLEAR; URINE BILIRUBIN NEGATIVE (NEGATIVE); URINE COLOR YELLOW; URINE GLUCOSE (UA) NEGATIVE (NEGATIVE); URINE KETONE NEGATIVE (NEGATIVE); URINE LEUK ESTERASE NEGATIVE (NEGATIVE); URINE NITRITE NEGATIVE (NEGATIVE); URINE PROTEIN NEGATIVE (NEGATIVE); URINE UROBILINOGEN 0.2 mg/dL (0.2-1.0)
[2019-12-12 05:54] LABS: ANION GAP 6 MMOL/L (8-16); BLOOD UREA NITROGEN 13.2 mg/dL (7-18); CHLORIDE 104 mmol/L (98-107); CO2 28 mmol/L (21-32); CREATININE 0.7 mg/dL (0.55-1.3); GLUCOSE,RANDOM 139 mg/dL (74-106); SODIUM 138 mmol/L (136-145)
[2019-12-12] MEDS: GLIMEPIRIDE 2 MG TABLET PO SCH (06:18)
[2019-12-12] MEDS ORDERED: metFORMIN HCL 500 MG TABLET (FP) PO SCH (07:00)
[2019-12-12] MEDS ORDERED: LOSARTAN POTASSIUM 25 MG TABLET ONE (08:49)
[2019-12-12] MEDS ORDERED: LOSARTAN POTASSIUM 50 MG TABLET ONE (08:49)
[2019-12-12] MEDS: ASPIRIN 81 MG CHEWABLE TABLETS PO SCH (08:59)
[2019-12-12] MEDS: METOPROLOL TARTRATE 25 MG TABLET (FP) PO SCH (09:00)
[2019-12-12] MEDS: LOSARTAN POTASSIUM 50 MG, LOSARTAN POTASSIUM 25 MG PO SCH (09:02)
[2019-12-12] MEDS ORDERED: DOXYCYCLINE INJECTION 100 MG in DEXTROSE 5%-WATER - 100 ML IVPB SCH (10:00)
[2019-12-12] MEDS ORDERED: LOSARTAN POTASSIUM 25 MG TABLET PO SCH (10:00)
--- NOTE | 2019-12-12 10:31 | PN ---
Progress Note (short form) - Note Progress Note: Subjective: No fever or chills. has mils sore throat, post nasal gtt, has no CP or SOB. he denies change in meds. reports new shoes and socks use. no pets at home. no hiking or out door activities. no exposure to animals in last trip to [facility]. ( 11/30-12/09) rash started on the day of arrival to [facility] 12/01/19. no h/o GI bleed or diarrhea. no h/o autoimmune or joint diseases in him or his family. has no genital rash or discharge from urethra. rash is itchy and burning. rash spread to upper legs and hands over a course of a week. yesterday new lesions on hands and wrists and swellign in hands. Objective: Vital Signs: Last Vital Signs Temp Pulse Resp BP Pulse Ox 98.1 F 67 18 108/70 100 12/11/19 23:00 12/11/19 23:00 12/11/19 23:00 12/11/19 23:00 12/11/19 23:00 Laboratory Results - last 24 hr 12/11/19 12/11/19 12/11/19 18:00 18:00 18:00 WBC 11.1 H RBC 4.96 Hgb 14.6 Hct 44.8 MCV 90.4 MCH 29.4 MCHC 32.5 RDW 13.5 Plt Count 233 MPV 8.9 D Absolute Neuts (auto) 6.6 Neutrophils % 59.5 Lymphocytes % 25.8 Monocytes % 8.9 Eosinophils % 5.3 H Basophils % 0.5 Nucleated RBC % 0 ESR 3 PT with INR 11.20 INR 0.95 PTT (Actin FS) 31.2 Sodium 138 Potassium 4.1 Chloride 101 Carbon Dioxide 31 Anion Gap 6 L BUN 12.2 Creatinine 0.8 Est GFR (CKD-EPI)AfAm 118.20 Est GFR (CKD-EPI)NonAf 101.99 POC Glucometer Random Glucose 155 H Calcium 9.2 Total Bilirubin 0.7 AST 19 ALT 43 Alkaline Phosphatase 89 C-Reactive Protein 0.3 Total Protein 7.5 Albumin 3.8 Urine Color Urine Appearance Urine pH Ur Specific Rifle Urine Protein Urine Glucose (UA) Urine Ketones Urine Blood Urine Nitrite Urine Bilirubin Urine Urobilinogen Ur Leukocyte Esterase 12/11/19 12/11/19 12/12/19 20:36 20:36 00:00 WBC 10.7 H RBC 4.84 Hgb 14.2 Hct 43.4 MCV 89.7 MCH 29.3 MCHC 32.6 RDW 13.5 Plt Count 223 MPV 9.5 Absolute Neuts (auto) Neutrophils % Lymphocytes % Monocytes % Eosinophils % Basophils % Nucleated RBC % ESR PT with INR INR PTT (Actin FS) 32.2 Sodium Potassium Chloride Carbon Dioxide Anion Gap BUN Creatinine Est GFR (CKD-EPI)AfAm Est GFR (CKD-EPI)NonAf POC Glucometer Random Glucose Calcium Total Bilirubin AST ALT Alkaline Phosphatase C-Reactive Protein Total Protein Albumin Urine Color Yellow Urine Appearance Clear Urine pH 5.0 Ur Specific Rifle 1.016 Urine Protein Negative Urine Glucose (UA) Negative Urine Ketones Negative Urine Blood Negative Urine Nitrite Negative Urine Bilirubin Negative Urine Urobilinogen 0.2 Ur Leukocyte Esterase Negative 12/12/19 12/12/19 00:00 06:17 WBC RBC Hgb Hct MCV MCH MCHC RDW Plt Count MPV Absolute Neuts (auto) Neutrophils % Lymphocytes % Monocytes % Eosinophils % Basophils % Nucleated RBC % ESR PT with INR INR PTT (Actin FS) Sodium 138 Potassium 4.0 Chloride 104 Carbon Dioxide 28 Anion Gap 6 L BUN 13.2 Creatinine 0.7 Est GFR (CKD-EPI)AfAm 124.87 Est GFR (CKD-EPI)NonAf 107.74 POC Glucometer 105 Random Glucose 139 H Calcium 9.0 Total Bilirubin AST ALT Alkaline Phosphatase C-Reactive Protein < 0.3 Total Protein Albumin Urine Color Urine Appearance Urine pH Ur Specific Rifle Urine Protein Urine Glucose (UA) Urine Ketones Urine Blood Urine Nitrite Urine Bilirubin Urine Urobilinogen Ur Leukocyte Esterase Physical Exam: NAD, Awake, alert, pleasant and cooperative MMM, no lesions in mouth, post nasal gtt in oropharynx. no thrush. Lymphatic system: no lymph nodes in neck, axilla, or groins. CV: RRR, 3/6 SM all over the precordium, especially in RUSB with radiation to carotids. heard in L axilla as well. possible diastolic component in LLSB. Lungs : CTAB Abd: Soft, NT, ND , NL BS , no hepatosplenomegaly skin : purpuritic rash with small vesicular lesions on legs , and lower thighs , and more vesicular lesiosn on wrists and dorsal hand. edema of dorsal hands. small lesions on soles. a scab on R lateral leg with surrounding purpuritic area. : Nl hair distribution . no discharge form penis , no ulcers Imaging: cxray and US reports reviewed. 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 1- Purpuritic rash o n extremities. no involvement of trunk. expansion over 12 days . onset on the day he landed in [facility] . no animal exposure /hiking/tick bites/ or change in meds. No autoimmune/rheum/GI disorders in family . DDx includes vasculitis ( leukocytoclastic vasculitis, Vs Henoch -Schoenlein purpura, Vs cryoglobulinemia, ...) . other causes could be infectious ( r/o pesudomonas given the necrotic area on R laterl leg). R/o Ricketsia although rash does not look typical. in DDx lymphoma as well, but less likely - follow ESR. CRP Nl - can't order Hep C Abx, will order Hep c PCR - will obtain skin Bx results from derm office tomorrow - will consult Dr. Barr. - stool cx - not sure if there is a serologic test of Sigella or Ricketsia. - Id eval. _ not sure if Dr. Barr had sent a culture or just a bx. - started on Doxy, will wait for ID eval - follow blood cx. - I doubt that [place] trip has anything to do with this as rash started on day of landing . wound on R lateral leg was before that. - Rheum eval - hold off topical steroids and topical bactroban as no improvement on out use - chck LDH 2- H/o HTN: cont metorpolol and losartan 3- H/o Dm : cont Amaryl and hold metformin 4- H/O Bioprosthetic AVR, cont ASA DVT Px: ambulation . hold off SCds due to legs being affected , and hold off chemical due to purpura. Visit type - Emergency Visit Emergency Visit: Yes ED Registration Date: 12/11/19 Care time: The patient presented to the Emergency Department on the above date and was hospitalized for further evaluation of their emergent condition. - New Patient This patient is new to me today: Yes Date on this admission: 12/12/19 - Critical Care Critical Care patient: No
--- NOTE | 2019-12-12 13:10 | EKG ---
Test Reason : Blood Pressure : / mmHG Vent. Rate : 056 BPM Atrial Rate : 056 BPM P-R Int : 154 ms QRS Dur : 092 ms QT Int : 432 ms P-R-T Axes : 071 030 094 degrees QTc Int : 416 ms SINUS BRADYCARDIA POSSIBLE LEFT ATRIAL ENLARGEMENT LEFT VENTRICULAR HYPERTROPHY T WAVE ABNORMALITY, CONSIDER LATERAL ISCHEMIA ABNORMAL ECG WHEN COMPARED WITH ECG OF 11-DEC-2017 15:14, T WAVE INVERSION NOW EVIDENT IN LATERAL LEADS Confirmed by BRIAN CALZADA MD ([id number]) on 12/12/2019 1:09:57 PM Referred By: Confirmed By:BRIAN CALZADA MD
--- NOTE | 2019-12-12 14:20 | CON.ID ---
Consult Consult Specialty:: infectious diseases Referred by:: emergency room Reason for Consultation:: rash, - History of Present Illness Chief Complaint: rash all over the body History of Present Illness: 54yo M hx HTN, HLD, DM, CVA, s/p TAVR for aortic valve tumor (on aspirin), Developed purpuric rash which started on lower extremities and feet, itchy, mildly painful and spread up to his knees bilaterally and then to his wrists. When he was in [place] around the new year. First time developed this rash, denied any other symptoms. Patient was in [place] for a wedding and was there for about 1 week . He did not have any contact with animals or insect bites, denied any entry into fresh water. Has not tried any new medications recently. Denied any other recent travels. His daughter went with him to [place] however did not develop a similar rash.He denied any fever, joint pain. Patient saw chemist assistant as outpatient On 12/02/2019 and had biopsy of rash performed, results pending. Was on doxycycline 100 mg twice daily p.o. For about 4 doses as an outpatient and mupirocin without Much help now patient is developing edema of the hands most problem is the itchiness of the rash - History Source History Provided By: Patient, Family Member Limitations to Obtaining History: No Limitations - Past Medical History Cardio/Vascular: Yes: HTN, Hyperlipdemia Endocrine: Yes: Diabetes Mellitus - Past Surgical History Past Surgical History: Yes: Laminectomy - Alcohol/Substance Use Hx Alcohol Use: No History of Substance Use: reports: None - Smoking History Smoking history: Never smoked Have you smoked in the past 12 months: No Aproximately how many cigarettes per day: 2 If you are a former smoker, when did you quit?: 2013 - Social History ADL: Independent History of Recent Travel: No Home Medications - Allergies Allergies/Adverse Reactions: Allergies Allergy/AdvReac Type Severity Reaction Status Date / Time No Known Allergies Allergy Verified 12/11/17 14:28 - Home Medications Home Medications: Ambulatory Orders Atorvastatin Ca [Lipitor] 40 mg PO HS 11/21/15 Losartan Potassium 75 mg PO DAILY 11/21/15 metFORMIN HCL [Metformin HCl] 500 mg PO DAILY 11/21/15 Aspirin [ASA -] 81 mg PO DAILY 12/09/19 Glimepiride 2 mg PO DAILY 12/09/19 Metoprolol Tartrate 37.5 mg PO BID 12/09/19 Doxycycline Hyclate 100 mg PO BID 12/12/19 Mupirocin Cream [Bactroban 2% Cream -] 1 applic TP BID 12/12/19 Triamcinolone 0.1% Cream [Aristocort 0.1% Cream -] 1 applic TD DAILY 12/12/19 Review of Systems - Review of Systems Constitutional: reports: No Symptoms Eyes: reports: No Symptoms HENT: reports: No Symptoms Neck: reports: No Symptoms Cardiovascular: reports: No Symptoms Respiratory: reports: No Symptoms Gastrointestinal: reports: No Symptoms Genitourinary: reports: No Symptoms Musculoskeletal: reports: No Symptoms Integumentary: reports: Rash Neurological: reports: No Symptoms Endocrine: reports: No Symptoms Hematology/Lymphatic: reports: No Symptoms Psychiatric: reports: No Symptoms Physical Exam Vital Signs: Vital Signs Temperature 97.9 F 12/12/19 13:57 Pulse Rate 66 12/12/19 13:57 Respiratory Rate 18 12/12/19 13:57 Blood Pressure 132/59 L 12/12/19 13:57 O2 Sat by Pulse Oximetry (%) 100 12/11/19 23:00 Constitutional: Yes: Well Nourished, Calm, Mild Distress Eyes: Yes: Conjunctiva Clear HENT: Yes: Atraumatic, Normocephalic Neck: Yes: Supple, Trachea Midline Cardiovascular: Yes: Regular Rate and Rhythm, Other (murmur present) Respiratory: Yes: Regular, CTA Bilaterally Gastrointestinal: Yes: Normal Bowel Sounds, Soft Musculoskeletal: Yes: WNL Extremities: Yes: Erythema, Other (rash all over the body) Integumentary: Yes: Rash Neurological: Yes: Alert, Oriented Psychiatric: Yes: Alert, Oriented Labs: CBC, BMP 12/12/19 00:00 12/12/19 00:00 Imaging - Results Chest X-ray: Report Reviewed, Image Reviewed Assessment/Plan Purpuric, itchy rash starting from lower extremities, spreading to wrists bilaterally, acute in onset after recent travel to [place]. Right leg eschar post scratching no fevers or any other issues this rash looks like vasculitis or infective - patient has had a biopsy done worrying factor is if the patient has any organ involvement he has developed edema of the hands the compliment workup has been send also biopsy is done i am going to start abx and monitor await for biopsy result also will consider getting a ct scan echo to be done rest as per the team
[2019-12-12] MEDS ORDERED: PT OWN MED DRAWER 7, Y5N ONE (15:17)
[2019-12-12] MEDS: VANCOMYCIN HCL 1,250 MG in DEXTROSE 5%-WATER - 250 ML IVPB SCH (15:38)
[2019-12-12] MEDS ORDERED: PIPERACILLIN/TAZOBACTAM 3.375 GM VIAL IVPB ONE (17:03)
[2019-12-12] MEDS ORDERED: DEXTROSE 5%-WATER - 50 ML IVPB ONE (17:04)
[2019-12-12] MEDS: PIPERACILLIN/TAZOB 3.375 GM 3.375 GM in DEXTROSE 5%-WATER - 50 ML IVPB SCH (17:33)
[2019-12-12] MEDS: ATORVASTATIN CA 20 MG TABLET (FP) PO SCH (22:09)
[2019-12-13] MEDS ORDERED: DEXTROSE 5%-WATER - 50 ML IVPB ONE ×3 (01:19→14:49)
[2019-12-13] MEDS ORDERED: PIPERACILLIN/TAZOBACTAM 3.375 GM VIAL IVPB ONE ×3 (01:19→14:49)
[2019-12-13] MEDS: PIPERACILLIN/TAZOB 3.375 GM 3.375 GM in DEXTROSE 5%-WATER - 50 ML IVPB SCH ×2 (01:55→09:35)
[2019-12-13] MEDS: GLIMEPIRIDE 2 MG TABLET PO SCH (06:57)
[2019-12-13] MEDS ORDERED: LOSARTAN POTASSIUM 50 MG TABLET ONE (09:16)
[2019-12-13] MEDS ORDERED: LOSARTAN POTASSIUM 25 MG TABLET ONE (09:16)
[2019-12-13] MEDS: METOPROLOL TARTRATE 25 MG TABLET (FP) PO SCH (09:33)
[2019-12-13] MEDS: LOSARTAN POTASSIUM 50 MG, LOSARTAN POTASSIUM 25 MG PO SCH (09:35)
[2019-12-13] MEDS: ASPIRIN 81 MG CHEWABLE TABLETS PO SCH (09:35)
--- NOTE | 2019-12-13 12:01 | ECHO ---
Name: RAMILA, TIMOTHY Exam:Adult Echocardiogram Study Date: 12/13/2019 08:49 AM Age: 54 yrs Height: 68 in Weight: 155 lb BSA: 1.8 m2 MMode/2D Measurements & Calculations IVSd: 1.1 cm Ao root diam: 2.6 cm LVIDd: 3.6 cm LA dimension: 3.0 cm LVIDs: 2.4 cm ACS: 1.8 cm LVPWd: 1.0 cm EDV(Teich): 56.2 ml LVOT diam: 1.4 cm ESV(Teich): 21.2 ml RV S Thee: 12.9 cm/sec Doppler Measurements & Calculations MV E max thee: 90.2 cm/sec Ao V2 max: 330.8 cm/sec MV A max thee: 94.1 cm/sec Ao max P.8 mmHg MV E/A: 0.96 Ao V2 mean: 223.2 cm/sec MV dec time: 0.23 sec Ao mean P.3 mmHg Ao V2 VTI: 66.8 cm RICK(I,D): 0.82 cm2 RICK(V,D): 0.60 cm2 LV V1 max P.9 mmHg MR max thee: 529.8 cm/sec LV V1 mean P.9 mmHg MR max P.9 mmHg LV V1 max: 121.9 cm/sec LV V1 mean: 93.3 cm/sec LV V1 VTI: 33.5 cm SV(LVOT): 54.9 ml TR max thee: 278.6 cm/sec TR max P.2 mmHg PA V2 max: 143.7 cm/sec PI end-d thee: 150.7 cm/sec PA max P.3 mmHg Med Peak E' Thee: 6.3 cm/sec Med E/e': 14.4 Lat Peak E' Thee: 10.7 cm/sec Lat E/e': 8.4 Procedure A complete two-dimensional transthoracic echocardiogram was performed (2D, M-mode, Doppler and color flow Doppler). Left Ventricle The left ventricle is normal in size. Left ventricular systolic function is normal. Ejection Fraction = 60- 65%. No regional wall motion abnormalities noted. Right Ventricle The right ventricle is normal size. The right ventricular systolic function is normal. Atria The left atrial size is normal. Right atrial size is normal. Mitral Valve There is mild mitral valve thickening. There is mild mitral annular calcification. There is mild mitr al regurgitation. Tricuspid Valve The tricuspid valve is normal in structure and function. There is mild tricuspid regurgitation. Pulmo nary artery systolic pressure is at least 40 mmHg is RA pressure is assumed 3 mmHg. Aortic Valve There is moderate aortic valve thickening. Moderate valvular aortic stenosis. The calculated aortic v alve area using the continuity equation is 0.8 cm2. Aortic mean pressure gradient= 25 mmHg. DI (dimensionless i ndex) is 0.48. No aortic regurgitation is present. Pulmonic Valve The pulmonic valve is not well visualized. Great Vessels The aortic root is normal size. Pericardium/Pleura There is no pericardial effusion. Interpretation Summary The left ventricle is normal in size. Left ventricular systolic function is normal. No regional wall motion abnormalities noted. Ejection Fraction = 60-65%. The right ventricular systolic function is normal. The left atrial size is normal. Right atrial size is normal. There is mild mitral valve thickening. There is mild mitral annular calcification. There is mild mitral regurgitation. There is mild tricuspid regurgitation. Pulmonary artery systolic pressure is at least 40 mmHg is RA pressure is assumed 3 mmHg There is moderate aortic valve thickening. Moderate valvular aortic stenosis. The calculated aortic valve area using the continuity equation is 0.8 cm2. Aortic mean pressure gradient= 25 mmHg DI (dimensionless index) is 0.48 No aortic regurgitation is present. There is no pericardial effusion. Brice Levy MD 12/13/2019 12:01 PM
--- NOTE | 2019-12-13 12:42 | PN ---
Progress Note, Physician History of Present Illness: rash is decreasing and drying still very itchy - Current Medication List Current Medications: Active Medications Aspirin (Asa -) 81 mg PO DAILY [facility] Last Admin: 12/13/19 09:35 Dose: 81 mg Atorvastatin Calcium (Lipitor -) 40 mg PO HS [facility] Last Admin: 12/12/19 22:09 Dose: 40 mg Diphenhydramine HCl (Benadryl Injection -) 25 mg IVPB Q8H PRN PRN Reason: pruritis Last Admin: 12/13/19 11:17 Dose: 25 mg Glimepiride (Amaryl -) 2 mg PO DAILY@0700 [facility] Last Admin: 12/13/19 06:57 Dose: 2 mg Hydroxyzine HCl (Atarax Liquid -) 10 mg PO Q12H PRN PRN Reason: FOR ITCHING Vancomycin HCl 1,250 mg/ (Dextrose) 250 mls @ 250 mls/2 hr IVPB Q24H [facility]; Protocol Last Admin: 12/12/19 15:38 Dose: 250 mls/2 hr Piperacillin Sod/Tazobactam (Sod 3.375 gm/ Dextrose) 50 mls @ 100 mls/hr IVPB Q8H-IV [facility]; Protocol Last Admin: 12/13/19 09:35 Dose: 100 mls/hr Ibuprofen (Motrin -) 400 mg PO Q6H PRN PRN Reason: FEVER Losartan Potassium 50 mg/ (Losartan Potassium 25 mg) 75 mg PO DAILY [facility] Last Admin: 12/13/19 09:35 Dose: 75 mg Metoprolol Tartrate (Lopressor -) 37.5 mg PO DAILY [facility] Last Admin: 12/13/19 09:33 Dose: 37.5 mg - Objective Vital Signs: Vital Signs Temperature 98.4 F 12/13/19 10:00 Pulse Rate 63 12/13/19 10:00 Respiratory Rate 20 12/13/19 10:00 Blood Pressure 128/69 12/13/19 10:00 O2 Sat by Pulse Oximetry (%) 100 12/13/19 09:00 Constitutional: Yes: No Distress, Calm Cardiovascular: Yes: S1, S2 Respiratory: Yes: Regular, CTA Bilaterally Gastrointestinal: Yes: Normal Bowel Sounds, Soft Musculoskeletal: Yes: WNL Extremities: Yes: Other Edema: LUE: 2+, RUE: 1+ Neurological: Yes: Alert, Oriented Psychiatric: Yes: Alert, Oriented Labs: CBC, BMP 12/12/19 00:00 12/12/19 00:00 INR, PTT INR 0.95 (0.83-1.09) 12/11/19 18:00 Assessment/Plan Purpuric, itchy rash starting from lower extremities, spreading to wrists bilaterally, acute in onset after recent travel to [place]. Right leg eschar post scratching awaiting for the biopsy result await for echo continue abx will d/w the team
--- NOTE | 2019-12-13 13:51 | PN ---
Teaching Attending Note Name of Resident: Oracio Reyna ATTENDING PHYSICIAN STATEMENT I saw and evaluated the patient. I reviewed the resident's note and discussed the case with the resident. I agree with the resident's findings and plan as documented. SUBJECTIVE: no fever or chills. No SELF , no new rash. L hand swelling is worse, and R hand swellign is better . OBJECTIVE: NAD, Awake, alert, pleasant and cooperative MMM CV: RRR, 3/6 SM all over the precordium, especially in RUSB with radiation to carotids. heard in L axilla as well. possible diastolic component in LLSB. Lungs : CTAB Abd: Soft, NT, ND , NL BS , no hepatosplenomegaly skin : purpuritic rash with small vesicular lesions on legs , and lower thighs , and more vesicular lesions on wrists and dorsal hand. edema of dorsal hands ( R is better ) . small lesions on soles. a scab on R lateral leg with surrounding purpuritic area. 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 1- Purpuritic rash on extremities. no involvement of trunk. DDx includes vasculitis ( leukocytoclastic vasculitis, Vs Henoch -Schoenlein purpura, Vs cryoglobulinemia, ...) . other causes could be infectious ( r/o bacterial) . R/o Ricketsia although rash does not look typical. in DDx lymphoma as well, but less likely - ESR and CRP Nl. LDh Nl. - Hep c PCR pending - will obtain skin Bx results from derm office. -Dr. Barr office did nto accept consult yesterday. will call today - stool cx pending - cont empiric Abx. vanco trough on Friday if still on Abx at that time - follow blood cx. - Rheum eval pending - hold off topical steroids and topical bactroban as no improvement on out use 2- H/o HTN: cont metorpolol and losartan 3- H/o Dm : cont Amaryl and hold metformin 4- H/O Bioprosthetic AVR, cont ASA DVT Px: ambulation . hold off SCds due to legs being affected , and hold off chemical due to purpura. ASSESSMENT AND PLAN:
[2019-12-13] MEDS ORDERED: PT OWN MED DRAWER 7, Y5N ONE (14:49)
[2019-12-13] MEDS: VANCOMYCIN HCL 1,250 MG in DEXTROSE 5%-WATER - 250 ML IVPB SCH (14:54)
[2019-12-13] MEDS: hydrOXYzine HCL 10 MG/5 ML LIQUID BULK BOTTLE PO PRN (14:54)
[2019-12-13 15:20] LABS: BASO % 0.2 % (0-2.0); EOS % 2.8 % (0-4.5); HEMATOCRIT 39.9 % (35.4-49); HEMOGLOBIN 13.5 GM/dL (11.7-16.9); LYMPH % 26.8 % (8-40); MCH 29.9 pg (25.7-33.7); MCHC 33.8 g/dl (32.0-35.9); MEAN CELL VOLUME 88.4 fl (80-96); MONO % 9.1 % (3.8-10.2); NEUT % 61.1 % (42.8-82.8); PLATELET COUNT 208 K/MM3 (134-434); RBC 4.52 M/mm3 (4.00-5.60); WHITE BLOOD COUNT 8.5 K/mm3 (4.0-10.0)
[2019-12-13] MEDS ORDERED: CALAMINE 8% TOPICAL LOTION 177 ML BOTTLE TP PRN (15:24)
[2019-12-13 15:45] LABS: ALBUMIN 3.4 g/dl (3.4-5.0); BLOOD UREA NITROGEN 9.7 mg/dL (7-18); CALCIUM 9.1 mg/dL (8.5-10.1); CREATININE 0.8 mg/dL (0.55-1.3); POTASSIUM 3.8 mmol/L (3.5-5.1); TOT PROT 6.8 g/dl (6.4-8.2)
[2019-12-13] MEDS: LORATADINE 10 MG TABLET PO SCH (17:01)
--- NOTE | 2019-12-13 18:02 | PN ---
Physical Exam: SUBJECTIVE: Patient seen and examined at bedside, sitting in chair. He c/o diffuse itchiness along BL LE and UE where rashes are present. He denies SOB or throat itchiness. He is already receiving IV Benadryl and lotion applied to skin. OBJECTIVE: Vital Signs Temp Pulse Resp BP Pulse Ox 98.1 F 77 18 139/85 100 12/13/19 17:27 12/13/19 17:27 12/13/19 17:27 12/13/19 17:27 12/13/19 09:00 GENERAL: AOx3, in no acute distress. HEAD: NCAT EYES: MICH, EOMI, conjunctiva clear. ENT: Ears normal, nares patent, oropharynx clear without exudates. Moist mucous membranes. NECK: Normal range of motion, supple without lymphadenopathy, JVD, or masses. LUNGS: CTAB. No wheezes, and no crackles. No accessory muscle use. HEART: RRR s1 s2 ABDOMEN: Soft, BS present in all 4 quadrants, non-distended, no JVD, MUSCULOSKELETAL: No bony deformities or tenderness. No CVA tenderness. UPPER EXTREMITIES: BL hand swelling LEFT > RIGHT. 1-4 mm red, lesions on hands. 2+ pulses, warm, well-perfused. No cyanosis. No clubbing. No peripheral edema. LOWER EXTREMITIES: Purpura scattered diffusely from feet up to knees; 2-6 mm red , circular. 2+ pulses, warm, well-perfused. No calf tenderness. No peripheral edema. NEUROLOGICAL: No focal deficits. Cranial nerves II-XII intact. Normal speech. Gait not appreciated. PSYCHIATRIC: Cooperative. Good eye contact. Appropriate mood and affect. SKIN: Warm, dry, normal turgor, no rashes or lesions noted, normal capillary refill. Laboratory Results - last 24 hr 12/12/19 12/13/19 12/13/19 06:20 06:59 14:35 WBC 8.5 RBC 4.52 Hgb 13.5 Hct 39.9 MCV 88.4 MCH 29.9 MCHC 33.8 RDW 13.0 Plt Count 208 MPV 9.0 Absolute Neuts (auto) 5.2 Neutrophils % 61.1 Lymphocytes % 26.8 Monocytes % 9.1 Eosinophils % 2.8 Basophils % 0.2 Nucleated RBC % 0 Sodium Potassium Chloride Carbon Dioxide Anion Gap BUN Creatinine Est GFR (CKD-EPI)AfAm Est GFR (CKD-EPI)NonAf POC Glucometer 92 Random Glucose Calcium Total Bilirubin AST ALT Alkaline Phosphatase Total Protein Albumin AIDE Screen Negative 12/13/19 14:35 WBC RBC Hgb Hct MCV MCH MCHC RDW Plt Count MPV Absolute Neuts (auto) Neutrophils % Lymphocytes % Monocytes % Eosinophils % Basophils % Nucleated RBC % Sodium 139 Potassium 3.8 Chloride 104 Carbon Dioxide 30 Anion Gap 5 L BUN 9.7 Creatinine 0.8 Est GFR (CKD-EPI)AfAm 118.20 Est GFR (CKD-EPI)NonAf 101.99 POC Glucometer Random Glucose 175 H Calcium 9.1 Total Bilirubin 1.0 AST 14 L ALT 32 Alkaline Phosphatase 77 Total Protein 6.8 Albumin 3.4 AIDE Screen Active Medications Aspirin (Asa -) 81 mg PO DAILY [facility] Last Admin: 12/13/19 09:35 Dose: 81 mg Atorvastatin Calcium (Lipitor -) 40 mg PO HS [facility] Last Admin: 12/12/19 22:09 Dose: 40 mg Calamine (Calamine 8% Topical Lotion -) 1 applic TP DAILY PRN PRN Reason: FOR ITCHING Last Admin: 12/13/19 16:58 Dose: 1 applic Diphenhydramine HCl (Benadryl Injection -) 25 mg IVPB Q8H PRN PRN Reason: pruritis Last Admin: 12/13/19 11:17 Dose: 25 mg Glimepiride (Amaryl -) 2 mg PO DAILY@0700 [facility] Last Admin: 12/13/19 06:57 Dose: 2 mg Hydroxyzine HCl (Atarax Liquid -) 10 mg PO Q12H PRN PRN Reason: FOR ITCHING Last Admin: 12/13/19 14:54 Dose: 10 mg Vancomycin HCl 1,250 mg/ (Dextrose) 250 mls @ 250 mls/2 hr IVPB Q24H [facility]; Protocol Last Admin: 12/13/19 14:54 Dose: 250 mls/2 hr Ibuprofen (Motrin -) 400 mg PO Q6H PRN PRN Reason: FEVER Loratadine (Claritin -) 10 mg PO DAILY [facility] Last Admin: 12/13/19 17:01 Dose: 10 mg Losartan Potassium 50 mg/ (Losartan Potassium 25 mg) 75 mg PO DAILY [facility] Last Admin: 12/13/19 09:35 Dose: 75 mg Metoprolol Tartrate (Lopressor -) 37.5 mg PO DAILY [facility] Last Admin: 12/13/19 09:33 Dose: 37.5 mg ASSESSMENT/PLAN: 54 y/o male PMH HTN, HLD, DM, CVA with RIGHT visual field deficit, s/p aortic valve replacement bioprosthetic valve in 2018 2/2 fibroelastoma c/o rash on UE and LE. Pt returning from trip to [facility], no new foods/cosmetics/herbs, and no other family members with similar symptoms. # Rash - Spares palms, soles, trunk, mucosa - Pt had biopsy performed (Dr. Dina Barr); continuing to f/u with office on results - Failed out-pt tx with topical steroids and topical bactroban - Vancomycin 1,250 IV QD - ID consulted - Dermatology consulted - Rheumatology consulted - Diphenhydramine 25 mg IV q8h - Loratidine 10 mg PO QD added - Hepatitis serology pending - Stool and blood cx pending # Bioprosthetic AVR - Aspirin 81 mg PO QD # DM - Hold home regimen - Glimeperide 2 mg PO QD - ISS ACHS # HTN - Cont. curent home regimen: Losartan 75 mg PO QD, Metoprolol tartrate 37.5 mg PO QD # HLD - Cont. curent home regimen: Atorvastatin 40 mg po hs # F/E/N - PO - Cont. to monitor - Low sodium, diabetic diet # DVT prophylaxis - Regular ambulation # Disposition - Admit to med/surg Carlos Alberto Benedict MD Visit type - Emergency Visit Emergency Visit: No - New Patient This patient is new to me today: Yes Date on this admission: 12/13/19 - Critical Care Critical Care patient: No ATTENDING PHYSICIAN STATEMENT I saw and evaluated the patient. I reviewed the resident's note and discussed the case with the resident. I agree with the resident's findings and plan as documented. SUBJECTIVE: OBJECTIVE: ASSESSMENT AND PLAN:
[2019-12-13 20:07] LABS: HEP B CORE AB, TOT Negative (Negative)
[2019-12-13] MEDS: ATORVASTATIN CA 20 MG TABLET (FP) PO SCH (21:48)
[2019-12-14] MEDS: GLIMEPIRIDE 2 MG TABLET PO SCH (06:31)
[2019-12-14 08:32] LABS: HEMATOCRIT 41.1 % (35.4-49); HEMOGLOBIN 13.9 GM/dL (11.7-16.9); MCH 29.9 pg (25.7-33.7); MCHC 33.8 g/dl (32.0-35.9); MEAN CELL VOLUME 88.6 fl (80-96); MEAN PLT VOLUME 8.9 fl (7.5-11.1); PLATELET COUNT 209 K/MM3 (134-434); RBC 4.63 M/mm3 (4.00-5.60); RDW 13.3 % (11.9-15.9); WHITE BLOOD COUNT 8.2 K/mm3 (4.0-10.0)
[2019-12-14 09:07] LABS: ALBUMIN 3.6 g/dl (3.4-5.0); BILIRUBIN,TOTAL 1.4 mg/dL (0.2-1); BLOOD UREA NITROGEN 9.2 mg/dL (7-18); CALCIUM 8.9 mg/dL (8.5-10.1); CREATININE 0.7 mg/dL (0.55-1.3); POTASSIUM 4.1 mmol/L (3.5-5.1); TOT PROT 7.2 g/dl (6.4-8.2)
[2019-12-14] MEDS ORDERED: LOSARTAN POTASSIUM 25 MG TABLET ONE (10:22)
[2019-12-14] MEDS ORDERED: LOSARTAN POTASSIUM 50 MG TABLET ONE (10:22)
[2019-12-14] MEDS: ASPIRIN 81 MG CHEWABLE TABLETS PO SCH (10:57)
[2019-12-14] MEDS: LOSARTAN POTASSIUM 50 MG, LOSARTAN POTASSIUM 25 MG PO SCH (10:58)
[2019-12-14] MEDS: LORATADINE 10 MG TABLET PO SCH (10:58)
[2019-12-14] MEDS: METOPROLOL TARTRATE 25 MG TABLET (FP) PO SCH (11:00)
--- NOTE | 2019-12-14 11:36 | PN ---
Progress Note, Physician History of Present Illness: stable still itching more places biopsy result awaited - Current Medication List Current Medications: Active Medications Aspirin (Asa -) 81 mg PO DAILY [facility] Last Admin: 12/14/19 10:57 Dose: 81 mg Atorvastatin Calcium (Lipitor -) 40 mg PO HS [facility] Last Admin: 12/13/19 21:48 Dose: 40 mg Calamine (Calamine 8% Topical Lotion -) 1 applic TP DAILY PRN PRN Reason: FOR ITCHING Last Admin: 12/13/19 16:58 Dose: 1 applic Diphenhydramine HCl (Benadryl Injection -) 25 mg IVPB Q8H PRN PRN Reason: pruritis Last Admin: 12/14/19 11:01 Dose: 25 mg Glimepiride (Amaryl -) 2 mg PO DAILY@0700 [facility] Last Admin: 12/14/19 06:31 Dose: 2 mg Hydroxyzine HCl (Atarax Liquid -) 10 mg PO Q12H PRN PRN Reason: FOR ITCHING Last Admin: 12/13/19 14:54 Dose: 10 mg Vancomycin HCl 1,250 mg/ (Dextrose) 250 mls @ 250 mls/2 hr IVPB Q24H [facility]; Protocol Last Admin: 12/13/19 14:54 Dose: 250 mls/2 hr Ibuprofen (Motrin -) 400 mg PO Q6H PRN PRN Reason: FEVER Loratadine (Claritin -) 10 mg PO DAILY [facility] Last Admin: 12/14/19 10:58 Dose: 10 mg Losartan Potassium 50 mg/ (Losartan Potassium 25 mg) 75 mg PO DAILY [facility] Last Admin: 12/14/19 10:58 Dose: 75 mg Metoprolol Tartrate (Lopressor -) 37.5 mg PO DAILY [facility] Last Admin: 12/14/19 11:00 Dose: 37.5 mg - Objective Vital Signs: Vital Signs Temperature 98.5 F 12/14/19 10:50 Pulse Rate 81 12/14/19 10:50 Respiratory Rate 18 12/14/19 10:50 Blood Pressure 127/73 12/14/19 10:50 O2 Sat by Pulse Oximetry (%) 100 12/13/19 21:00 Constitutional: Yes: Calm, Mild Distress Cardiovascular: Yes: S1, S2, Other (murmur) Respiratory: Yes: Regular, CTA Bilaterally Gastrointestinal: Yes: Normal Bowel Sounds, Soft Musculoskeletal: Yes: WNL Extremities: Yes: Other Integumentary: Yes: Rash Neurological: Yes: Alert, Oriented Psychiatric: Yes: Alert, Oriented Labs: CBC, BMP 12/14/19 07:40 12/14/19 07:40 INR, PTT INR 0.95 (0.83-1.09) 12/11/19 18:00 Assessment/Plan Purpuric, itchy rash starting from lower extremities, spreading to wrists bilaterally, acute in onset after recent travel to [place]. Right leg eschar post scratching awaiting for the biopsy result will stop everything and monitor the progress symptomatic treatment rest as per the team
[2019-12-14] MEDS: hydrOXYzine HCL 10 MG/5 ML LIQUID BULK BOTTLE PO PRN (13:04)
--- NOTE | 2019-12-14 13:44 | CONSULT ---
Consult Consult Specialty:: Rheumatology - History of Present Illness History of Present Illness: 54 yo male with history of HTN, HLD, DM, CVA, s/p TAVR for aortic valve tumor ( on aspirin), admitted with skin rash involving lower and upper limbs. The patient traveled to [facility] for a wedding. On 12/01/19 he developed a skin rash in lower limbs without any obvious triggering factor. The next day he returned to [facility] and on that day the rash became very pruritic. There were no significant changes until 3 days ago when he developed puffiness in hands with no significant pain, 2 days ago he developed mild rash in arms and today he reports mild tenderness in the right hand and left knee and progression of the skin rahs involving thighs and buttocks. The patient denies insect bites, joint pain, malaise, shortness of breath, chest pain, abdominal pain, diarrhea or fever. The patient was treated with Doxycycline 100 mg twice daily p.o. for 2 days with no response and he was started on topical triamcinolone resulting in partial improvement. A chest X-ray and echocardiogram were reported as normal. CBC had a WBC of 10.7 , Hgb 14.2, HCT 43.4 and platelets 223. Glucose 139 and rest of SMA-7, liver function tests and urinalysis were normal. ESR was 6. 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, - History Source History Provided By: Patient, Family Member, Medical Record - Past Medical History Cardio/Vascular: Yes: HTN, Hyperlipdemia Endocrine: Yes: Diabetes Mellitus - Past Surgical History Past Surgical History: Yes: Laminectomy - Alcohol/Substance Use Hx Alcohol Use: No History of Substance Use: reports: None - Smoking History Smoking history: Never smoked Have you smoked in the past 12 months: No Aproximately how many cigarettes per day: 2 If you are a former smoker, when did you quit?: 2013 - Social History ADL: Independent History of Recent Travel: No Home Medications - Allergies Allergies/Adverse Reactions: Allergies Allergy/AdvReac Type Severity Reaction Status Date / Time No Known Allergies Allergy Verified 12/11/17 14:28 - Home Medications Home Medications: Ambulatory Orders Atorvastatin Ca [Lipitor] 40 mg PO HS 11/21/15 Losartan Potassium 75 mg PO DAILY 11/21/15 metFORMIN HCL [Metformin HCl] 500 mg PO DAILY 11/21/15 Aspirin [ASA -] 81 mg PO DAILY 12/09/19 Glimepiride 2 mg PO BID 12/09/19 Metoprolol Tartrate 37.5 mg PO BID 12/09/19 Doxycycline Hyclate 100 mg PO BID 12/12/19 Mupirocin Cream [Bactroban 2% Cream -] 1 applic TP BID 12/12/19 Triamcinolone 0.1% Cream [Aristocort 0.1% Cream -] 1 applic TD DAILY 12/12/19 metFORMIN HCL [Metformin HCl ER] 500 mg PO BID 12/13/19 Review of Systems - Review of Systems Constitutional: reports: Malaise Eyes: reports: No Symptoms HENT: reports: No Symptoms Neck: reports: No Symptoms Cardiovascular: reports: No Symptoms Respiratory: reports: No Symptoms Gastrointestinal: reports: No Symptoms Musculoskeletal: reports: Other (See HPI) Integumentary: reports: Other (See HPI) Physical Exam Vital Signs: Vital Signs Temperature 98.5 F 12/14/19 10:50 Pulse Rate 81 12/14/19 10:50 Respiratory Rate 18 12/14/19 10:50 Blood Pressure 127/73 12/14/19 10:50 O2 Sat by Pulse Oximetry (%) 100 12/13/19 21:00 Constitutional: Yes: Mild Distress Eyes: Yes: WNL HENT: Yes: WNL Neck: Yes: WNL Cardiovascular: Yes: WNL Respiratory: Yes: WNL Gastrointestinal: Yes: WNL Musculoskeletal: Yes: Other (Mild puffiness in the dorsum of both hands with no synovitis. Tenderness in the left knee. No other joint involvement.) Labs: CBC, BMP 12/14/19 07:40 12/14/19 07:40 Laboratory Tests 12/11/19 12/12/19 12/12/19 20:36 06:20 06:20 ESR Random Glucose Calcium Total Bilirubin AST ALT Alkaline Phosphatase Total Protein Albumin Urine Appearance Clear Urine pH 5.0 Ur Specific [place] 1.016 Urine Protein Negative Urine Glucose (UA) Negative Urine Ketones Negative Urine Blood Negative Urine Nitrite Negative Urine Bilirubin Negative Urine Urobilinogen 0.2 Ur Leukocyte Esterase Negative AIDE Screen Negative RPR Titer Nonreactive Hep Bs Antigen Hep Bs Antibody Hep B Core Total Ab Hep B Core IgM Ab Hepatitis Be Antibody Hepatitis Be Antigen 12/12/19 12/12/19 12/14/19 06:20 10:45 07:40 ESR 6 Random Glucose 166 H Calcium 8.9 Total Bilirubin 1.4 H AST 13 L ALT 31 Alkaline Phosphatase 75 Total Protein 7.2 Albumin 3.6 Urine Appearance Urine pH Ur Specific [place] Urine Protein Urine Glucose (UA) Urine Ketones Urine Blood Urine Nitrite Urine Bilirubin Urine Urobilinogen Ur Leukocyte Esterase AIDE Screen RPR Titer Hep Bs Antigen Negative Hep Bs Antibody Reactive Hep B Core Total Ab Negative Hep B Core IgM Ab Negative Hepatitis Be Antibody Negative Hepatitis Be Antigen Negative Problem List - Problems (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 No obvious triggering factor (infection medication or other connective tissue disease). Progressive. Plan: As per discussion with Dr. Farley, I suggest to start Prednisone 10 mg daily and Colchicine 0.6 mg BID. I will request further serology and complement. Code(s): M31.0 - HYPERSENSITIVITY ANGIITIS
--- NOTE | 2019-12-14 13:55 | PN ---
Teaching Attending Note Name of Resident: Carlos Alberto Benedict ATTENDING PHYSICIAN STATEMENT I saw and evaluated the patient. I reviewed the resident's note and discussed the case with the resident. I agree with the resident's findings and plan as documented. SUBJECTIVE: No fever or chills. No SELF. has new lesions on his buttocks. has no SOB , SELF , change in vision , SOB , cough, or hematuria. OBJECTIVE: NAD, Awake, alert, pleasant and cooperative MMM CV: RRR, 3/6 SM all over the precordium, especially in RUSB with radiation to carotids. heard in L axilla as well. possible diastolic component in LLSB. Lungs: CTAB Abd: Soft, NT, ND , NL BS, no hepatosplenomegaly. Skin: purpuritic rash with small vesicular lesions on legs , and lower thighs, and more vesicular lesions on wrists and dorsal hand. edema of dorsal hands is better today. small lesions on soles. A scab on R lateral leg with surrounding purpuritic area. New maculopapular lesions on upper posterior thighs, and lower buttocks. 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 1- Leukocytoclastic vasculitis: team spoke to Dr. Wills the pathologist, and confirmed the diagnosis . No systemic involvement ( renal failure, hematuria, glomerulonephritis, or neurological/ pulmonary symptoms - spoke to Dr. Nance, start prednisone 10 mg daily and colchicine 0.6 BID - follow IGA, and Hep C serology, and ANCA - complement levels - obtain CT of the Abd/pelvis - dc Abx. d/w Dr. Cerna - follow rest of work up - repeat LFTS tomorrow. slightly elevated bili 2- H/o HTN: cont metorpolol and losartan 3- H/o DM: cont Amaryl and hold metformin 4- H/O Bioprosthetic AVR, cont ASA DVT Px: ambulation. add heparin sq
--- NOTE | 2019-12-14 14:11 | PN ---
Physical Exam: SUBJECTIVE: Patient seen and examined at bedside. Overnight he continued to have intense pruritis despite addition of loratidine and home regimen of almond lotion. The pruritis now is bothersome up to the gluteal cleft. His RIGHT hand is less swollen. OBJECTIVE: Vital Signs Temp Pulse Resp BP Pulse Ox 97.5 F L 63 20 130/60 100 12/14/19 18:30 12/14/19 18:30 12/14/19 18:30 12/14/19 18:30 12/14/19 09:00 GENERAL: AOx3, in no acute distress. HEAD: NCAT EYES: MICH, EOMI, conjunctiva clear. ENT: Ears normal, nares patent, oropharynx clear without exudates. Moist mucous membranes. NECK: Normal range of motion, supple without lymphadenopathy, JVD, or masses. LUNGS: CTAB. No wheezes, and no crackles. No accessory muscle use. HEART: RRR s1 s2 systolic murmur with radiation to carotid ABDOMEN: Soft, BS present in all 4 quadrants, non-distended, no JVD, MUSCULOSKELETAL: No bony deformities or tenderness. No CVA tenderness. UPPER EXTREMITIES: LEFT hand swelling 1-4 mm red, lesions on hands. 2+ pulses, warm, well-perfused. No cyanosis. No clubbing. No peripheral edema. LOWER EXTREMITIES: Purpura scattered diffusely from feet up to knees; 2-6 mm red , circular. 2+ pulses, warm, well-perfused. No calf tenderness. No peripheral edema. NEUROLOGICAL: No focal deficits. Cranial nerves II-XII intact. Normal speech. Gait not appreciated. PSYCHIATRIC: Cooperative. Good eye contact. Appropriate mood and affect. SKIN: Indurations on flexor surface of LE and on gluteal cleft LEFT. Warm, dry, normal turgor, normal capillary refill. Laboratory Results - last 24 hr 12/11/19 12/12/19 12/12/19 00:00 06:20 06:20 WBC RBC Hgb Hct MCV MCH MCHC RDW Plt Count MPV Absolute Neuts (auto) Neutrophils % Lymphocytes % Monocytes % Eosinophils % Basophils % Nucleated RBC % ESR Cancelled Sodium Potassium Chloride Carbon Dioxide Anion Gap BUN Creatinine Est GFR (CKD-EPI)AfAm Est GFR (CKD-EPI)NonAf POC Glucometer Random Glucose Calcium Total Bilirubin AST ALT Alkaline Phosphatase Total Protein Albumin AIDE Screen Negative Hep Bs Antigen Negative Hep Bs Antibody Reactive Hep B Core Total Ab Negative Hep B Core IgM Ab Negative Hepatitis Be Antibody Negative Hepatitis Be Antigen Negative 12/13/19 12/13/19 12/14/19 14:35 14:35 06:30 WBC 8.5 RBC 4.52 Hgb 13.5 Hct 39.9 MCV 88.4 MCH 29.9 MCHC 33.8 RDW 13.0 Plt Count 208 MPV 9.0 Absolute Neuts (auto) 5.2 Neutrophils % 61.1 Lymphocytes % 26.8 Monocytes % 9.1 Eosinophils % 2.8 Basophils % 0.2 Nucleated RBC % 0 ESR Sodium 139 Potassium 3.8 Chloride 104 Carbon Dioxide 30 Anion Gap 5 L BUN 9.7 Creatinine 0.8 Est GFR (CKD-EPI)AfAm 118.20 Est GFR (CKD-EPI)NonAf 101.99 POC Glucometer 110 Random Glucose 175 H Calcium 9.1 Total Bilirubin 1.0 AST 14 L ALT 32 Alkaline Phosphatase 77 Total Protein 6.8 Albumin 3.4 AIDE Screen Hep Bs Antigen Hep Bs Antibody Hep B Core Total Ab Hep B Core IgM Ab Hepatitis Be Antibody Hepatitis Be Antigen 12/14/19 12/14/19 07:40 07:40 WBC 8.2 RBC 4.63 Hgb 13.9 Hct 41.1 MCV 88.6 MCH 29.9 MCHC 33.8 RDW 13.3 Plt Count 209 MPV 8.9 Absolute Neuts (auto) Neutrophils % Lymphocytes % Monocytes % Eosinophils % Basophils % Nucleated RBC % ESR Sodium 138 Potassium 4.1 Chloride 102 Carbon Dioxide 30 Anion Gap 5 L BUN 9.2 Creatinine 0.7 Est GFR (CKD-EPI)AfAm 124.87 Est GFR (CKD-EPI)NonAf 107.74 POC Glucometer Random Glucose 166 H Calcium 8.9 Total Bilirubin 1.4 H AST 13 L ALT 31 Alkaline Phosphatase 75 Total Protein 7.2 Albumin 3.6 AIDE Screen Hep Bs Antigen Hep Bs Antibody Hep B Core Total Ab Hep B Core IgM Ab Hepatitis Be Antibody Hepatitis Be Antigen Active Medications Aspirin (Asa -) 81 mg PO DAILY [facility] Last Admin: 12/14/19 10:57 Dose: 81 mg Atorvastatin Calcium (Lipitor -) 40 mg PO HS [facility] Last Admin: 12/14/19 22:20 Dose: 40 mg Calamine (Calamine 8% Topical Lotion -) 1 applic TP DAILY PRN PRN Reason: FOR ITCHING Last Admin: 12/13/19 16:58 Dose: 1 applic Colchicine (Colcrys) 0.6 mg PO BID [facility] Last Admin: 12/14/19 22:20 Dose: 0.6 mg Diphenhydramine HCl (Benadryl Injection -) 25 mg IVPB Q8H PRN PRN Reason: pruritis Last Admin: 12/14/19 11:01 Dose: 25 mg Glimepiride (Amaryl -) 2 mg PO DAILY@0700 [facility] Last Admin: 12/14/19 06:31 Dose: 2 mg Heparin Sodium (Porcine) (Heparin -) 5,000 unit SQ TID [facility] Last Admin: 12/14/19 22:20 Dose: 5,000 unit Hydroxyzine HCl (Atarax Liquid -) 10 mg PO Q12H PRN PRN Reason: FOR ITCHING Last Admin: 12/14/19 13:04 Dose: 10 mg Loratadine (Claritin -) 10 mg PO DAILY [facility] Last Admin: 12/14/19 10:58 Dose: 10 mg Losartan Potassium 50 mg/ (Losartan Potassium 25 mg) 75 mg PO DAILY [facility] Last Admin: 12/14/19 10:58 Dose: 75 mg Metoprolol Tartrate (Lopressor -) 37.5 mg PO DAILY [facility] Last Admin: 12/14/19 11:00 Dose: 37.5 mg Naproxen (Naprosyn -) 500 mg PO BID [facility] Last Admin: 12/14/19 22:22 Dose: Not Given Prednisone (Deltasone -) 10 mg PO DAILY [facility] Last Admin: 12/14/19 15:03 Dose: 10 mg ASSESSMENT/PLAN: 54 y/o male PMH HTN, HLD, DM, CVA with RIGHT visual field deficit, s/p aortic valve replacement bioprosthetic valve in 2018 2/2 fibroelastoma c/o rash on UE and LE. Pt returning from trip to [place], no new foods/cosmetics/herbs, and no other family members with similar symptoms. Biopsy results from dermatology visit prior to admission reporting leukocytoclastic vasculitis. # Rash consistent with leukocytoclastic vasculitis - Prednisone 10 mg PO QD, Colchicine (Colcrys) 0.6 mg PO BID - No systemic involvement - Pt had biopsy performed (Dr. Dina Barr) s/p failed out-pt tx with topical steroids and topical bactroban - ID consulted - Dermatology consulted - Rheumatology consulted: pending hep c, complement , AIDE, ANCA, IGA - Hepatitis B serology NEG - HIV, RPR, and Gonorrhea pending - Stool and blood cx pending # Bioprosthetic AVR - Aspirin 81 mg PO QD # DM - Hold home regimen - Glimeperide 2 mg PO QD - ISS ACHS # HTN - Cont. curent home regimen: Losartan 75 mg PO QD, Metoprolol tartrate 37.5 mg PO QD # HLD - Cont. curent home regimen: Atorvastatin 40 mg po hs # F/E/N - PO - Cont. to monitor - Low sodium, diabetic diet # DVT prophylaxis - Regular ambulation # Disposition - Med/surg Carlos Alberto Benedict MD Visit type - Emergency Visit Emergency Visit: No - New Patient This patient is new to me today: No - Critical Care Critical Care patient: No ATTENDING PHYSICIAN STATEMENT I saw and evaluated the patient. I reviewed the resident's note and discussed the case with the resident. I agree with the resident's findings and plan as documented. SUBJECTIVE: OBJECTIVE: ASSESSMENT AND PLAN:
[2019-12-14] MEDS: predniSONE 5 MG TABLET (UD) PO SCH (15:03)
[2019-12-14] MEDS: COLCHICINE 0.6 MG CAP PO SCH ×2 (15:03→22:20)
[2019-12-14 17:07] LABS: ATYPICAL pANCA <1:20 titer (Neg:<1:20); C-ANCA <1:20 titer (Neg:<1:20)
--- NOTE | 2019-12-14 19:24 | CONSULT ---
Consult Consult Specialty:: Dermatology Reason for Consultation:: vasculitis - History Source History Provided By: Patient, Significant Other - Past Medical History Cardio/Vascular: Yes: HTN, Hyperlipdemia Endocrine: Yes: Diabetes Mellitus - Past Surgical History Past Surgical History: Yes: Laminectomy - Alcohol/Substance Use Hx Alcohol Use: No History of Substance Use: reports: None - Smoking History Smoking history: Never smoked Have you smoked in the past 12 months: No Aproximately how many cigarettes per day: 2 If you are a former smoker, when did you quit?: 2013 - Social History ADL: Independent History of Recent Travel: No Home Medications - Allergies Allergies/Adverse Reactions: Allergies Allergy/AdvReac Type Severity Reaction Status Date / Time No Known Allergies Allergy Verified 12/11/17 14:28 - Home Medications Home Medications: Ambulatory Orders Atorvastatin Ca [Lipitor] 40 mg PO HS 11/21/15 Losartan Potassium 75 mg PO DAILY 11/21/15 metFORMIN HCL [Metformin HCl] 500 mg PO DAILY 11/21/15 Aspirin [ASA -] 81 mg PO DAILY 12/09/19 Glimepiride 2 mg PO BID 12/09/19 Metoprolol Tartrate 37.5 mg PO BID 12/09/19 Doxycycline Hyclate 100 mg PO BID 12/12/19 Mupirocin Cream [Bactroban 2% Cream -] 1 applic TP BID 12/12/19 Triamcinolone 0.1% Cream [Aristocort 0.1% Cream -] 1 applic TD DAILY 12/12/19 metFORMIN HCL [Metformin HCl ER] 500 mg PO BID 12/13/19 Physical Exam Vital Signs: Vital Signs Temperature 98.6 F 12/14/19 15:05 Pulse Rate 61 12/14/19 15:05 Respiratory Rate 18 12/14/19 15:05 Blood Pressure 135/75 12/14/19 15:05 O2 Sat by Pulse Oximetry (%) 100 12/13/19 21:00 Labs: CBC, BMP 12/14/19 07:40 12/14/19 07:40 Assessment/Plan Patient first developed lesions on medial aspect of ankles after landing in [place] 12/01/2019 ( 19 hour flight). COmprehensive history taken revealed no new foods, exposures , illnesses , cosmetics exposure to animals or insect bites. After seeing me the lesions subsequently worstened until he saw me on 12/09 On examination he presented with palpable purpuric lesion extending from knee to ankles , some tender and burning . Patient was otherwise well with no systemic symptoms. A decision was made to biopsy the lesions to r/o vasculitis after consent was obtained from patient and his . Patient was also started on Doxycycline 100 mg BID as well as topical treatment with triamcinolne oint and bactroban oint for open areas . Follow up apt was scheduled for a week. Patient had worsening of lesions and was admitted to hospital 12/11/19. I was called to see patient yesterday and called admitting MD to discuss case. Discussed also with Dr clarke. Discussed need to porter pathology results with lab. Biopsy results reported today consistent with Leukocytoclastic vasculitis. Patient s/p Rx with vancomycin now discontinued. Patient started on prednisone and colchicine today. On exam the lesions on the lower extremity are less erythematous and becoming more dusky in appearance . There are additional lesions on elbows that are more papular in appearance and palbable. Edema of both hands are resolving . Patient is stable otherwise and resting comfortably. Vasculitis work up negative to date ( U[facility] wnl) and lab work from Dr Clarke pending hep c, complement , AIDE, ANCA, IGA. Patient advised to D/c calamine lotion and continue cortisone oint QD. Patient will follow up with me as outpatient.
[2019-12-14 19:34] LABS: PH,URINE 7.5 (5.0-8.0); URINE APPEARANCE CLEAR; URINE BILIRUBIN NEGATIVE (NEGATIVE); URINE COLOR YELLOW; URINE GLUCOSE (UA) NEGATIVE (NEGATIVE); URINE KETONE NEGATIVE (NEGATIVE); URINE LEUK ESTERASE NEGATIVE (NEGATIVE); URINE NITRITE NEGATIVE (NEGATIVE); URINE PROTEIN NEGATIVE (NEGATIVE); URINE UROBILINOGEN 0.2 mg/dL (0.2-1.0)
[2019-12-14] MEDS: HEPARIN NA (PORCINE) 5,000 UNITS/ML 1ML VIAL SQ SCH (22:20)
[2019-12-14] MEDS: ATORVASTATIN CA 20 MG TABLET (FP) PO SCH (22:20)
[2019-12-14] MEDS: NAPROXEN 500 MG TABLET PO SCH (22:22)
[2019-12-15] MEDS: GLIMEPIRIDE 2 MG TABLET PO SCH (07:14)
[2019-12-15] MEDS: HEPARIN NA (PORCINE) 5,000 UNITS/ML 1ML VIAL SQ SCH ×2 (07:14→15:46)
[2019-12-15 08:25] LABS: ALBUMIN 3.3 g/dl (3.4-5.0); BILIRUBIN,DIRECT 0.3 mg/dL (0.0-0.2); BLOOD UREA NITROGEN 12.4 mg/dL (7-18); CALCIUM 8.7 mg/dL (8.5-10.1); CREATININE 0.7 mg/dL (0.55-1.3); POTASSIUM 3.9 mmol/L (3.5-5.1)
[2019-12-15] MEDS ORDERED: PT OWN MED DRAWER 7, Y5N ONE (08:31)
--- NOTE | 2019-12-15 08:43 | PN ---
Progress Note, Physician History of Present Illness: improving itching improving biopsy result noted - Current Medication List Current Medications: Active Medications Aspirin (Asa -) 81 mg PO DAILY [facility] Last Admin: 12/14/19 10:57 Dose: 81 mg Atorvastatin Calcium (Lipitor -) 40 mg PO HS [facility] Last Admin: 12/14/19 22:20 Dose: 40 mg Calamine (Calamine 8% Topical Lotion -) 1 applic TP DAILY PRN PRN Reason: FOR ITCHING Last Admin: 12/13/19 16:58 Dose: 1 applic Colchicine (Colcrys) 0.6 mg PO BID [facility] Last Admin: 12/14/19 22:20 Dose: 0.6 mg Diphenhydramine HCl (Benadryl Injection -) 25 mg IVPB Q8H PRN PRN Reason: pruritis Last Admin: 12/14/19 11:01 Dose: 25 mg Glimepiride (Amaryl -) 2 mg PO DAILY@0700 [facility] Last Admin: 12/15/19 07:14 Dose: 2 mg Heparin Sodium (Porcine) (Heparin -) 5,000 unit SQ TID [facility] Last Admin: 12/15/19 07:14 Dose: 5,000 unit Hydroxyzine HCl (Atarax Liquid -) 10 mg PO Q12H PRN PRN Reason: FOR ITCHING Last Admin: 12/14/19 13:04 Dose: 10 mg Loratadine (Claritin -) 10 mg PO DAILY [facility] Last Admin: 12/14/19 10:58 Dose: 10 mg Losartan Potassium 50 mg/ (Losartan Potassium 25 mg) 75 mg PO DAILY [facility] Last Admin: 12/14/19 10:58 Dose: 75 mg Metoprolol Tartrate (Lopressor -) 37.5 mg PO DAILY [facility] Last Admin: 12/14/19 11:00 Dose: 37.5 mg Naproxen (Naprosyn -) 500 mg PO BID [facility] Last Admin: 12/14/19 22:22 Dose: Not Given Prednisone (Deltasone -) 10 mg PO DAILY [facility] Last Admin: 12/14/19 15:03 Dose: 10 mg - Objective Vital Signs: Vital Signs Temperature 98.9 F 12/15/19 06:00 Pulse Rate 77 12/15/19 06:00 Respiratory Rate 18 12/15/19 06:00 Blood Pressure 111/61 12/15/19 06:00 O2 Sat by Pulse Oximetry (%) 96 12/14/19 21:00 Constitutional: Yes: No Distress, Calm Cardiovascular: Yes: S1, S2 Respiratory: Yes: Regular, CTA Bilaterally Gastrointestinal: Yes: Normal Bowel Sounds, Soft Extremities: Yes: Other Neurological: Yes: Alert, Oriented Psychiatric: Yes: Alert, Oriented Labs: CBC, BMP 12/14/19 07:40 12/15/19 06:35 INR, PTT INR 0.95 (0.83-1.09) 12/11/19 18:00 Assessment/Plan Purpuric, itchy rash starting from lower extremities, spreading to wrists bilaterally, acute in onset after recent travel to [place]. Right leg eschar post scratching 54 y/o male PMH HTN, HLD, DM, CVA with RIGHT visual field deficit, s/p aortic valve replacement bioprosthetic valve in 2018 2/2 fibroelastoma c/o rash on UE and LE. Pt returning from trip to [facility], no new foods/cosmetics/herbs, and no other family members with similar symptoms. # Rash # Bioprosthetic AVR # DM # HTN # HLD - plan continue current mgmt ct scan result noted
--- NOTE | 2019-12-15 09:35 | PN ---
Teaching Attending Note Name of Resident: Nathanael Ibrahim ATTENDING PHYSICIAN STATEMENT I saw and evaluated the patient. I reviewed the resident's note and discussed the case with the resident. I agree with the resident's findings and plan as documented. SUBJECTIVE: Patient is comfortable with no acute distress, no nausea and vomiting, feeling better and wants to go home. OBJECTIVE: Vital Signs Temperature 98.9 F 12/15/19 06:00 Pulse Rate 77 12/15/19 06:00 Respiratory Rate 18 12/15/19 06:00 Blood Pressure 111/61 12/15/19 06:00 O2 Sat by Pulse Oximetry (%) 96 12/14/19 21:00 GENERAL: The patient is awake, alert, and fully oriented, in no acute distress. HEAD: Normal with no signs of trauma. EYES: PERRL, extraocular movements intact, sclera anicteric, conjunctiva clear. ENT: Ears normal, oropharynx clear without exudates, moist mucous membranes. NECK: Trachea midline, full range of motion, supple. LUNGS: Breath sounds equal, clear to auscultation bilaterally, no wheezes, no crackles, no accessory muscle use. HEART: Regular rate and rhythm, S1, S2 without murmur, rub or gallop. ABDOMEN: Soft, nontender, nondistended, normoactive bowel sounds, no guarding, no rebound, no hepatosplenomegaly, no masses. EXTREMITIES: 2+ pulses, warm, well-perfused, no edema. NEUROLOGICAL: Cranial nerves II through XII grossly intact. Normal speech, gait not observed. PSYCH: Normal mood, normal affect. SKIN: Warm, dry, normal turgor, positive for vasculitic rash lower extremities and upper extremities minimal. CBCD WBC 8.2 K/mm3 (4.0-10.0) 12/14/19 07:40 RBC 4.63 M/mm3 (4.00-5.60) 12/14/19 07:40 Hgb 13.9 GM/dL (11.7-16.9) 12/14/19 07:40 Hct 41.1 % (35.4-49) 12/14/19 07:40 MCV 88.6 fl (80-96) 12/14/19 07:40 MCHC 33.8 g/dl (32.0-35.9) 12/14/19 07:40 RDW 13.3 % (11.9-15.9) 12/14/19 07:40 Plt Count 209 K/MM3 (134-434) 12/14/19 07:40 MPV 8.9 fl (7.5-11.1) 12/14/19 07:40 CMP Sodium 138 mmol/L (136-145) 12/15/19 06:35 Potassium 3.9 mmol/L (3.5-5.1) 12/15/19 06:35 Chloride 103 mmol/L (98-107) 12/15/19 06:35 Carbon Dioxide 29 mmol/L (21-32) 12/15/19 06:35 Anion Gap 6 MMOL/L (8-16) L 12/15/19 06:35 BUN 12.4 mg/dL (7-18) 12/15/19 06:35 Creatinine 0.7 mg/dL (0.55-1.3) 12/15/19 06:35 Random Glucose 133 mg/dL (74-106) H 12/15/19 06:35 Calcium 8.7 mg/dL (8.5-10.1) 12/15/19 06:35 Total Bilirubin 1.0 mg/dL (0.2-1) 12/15/19 06:35 AST 15 U/L (15-37) 12/15/19 06:35 ALT 30 U/L (13-61) 12/15/19 06:35 Alkaline Phosphatase 78 U/L (45-117) 12/15/19 06:35 Total Protein 7.0 g/dl (6.4-8.2) 12/15/19 06:35 Albumin 3.3 g/dl (3.4-5.0) L 12/15/19 06:35 Current Medications Generic Name Dose Route Start Last Admin Trade Name Freq PRN Reason Stop Dose Admin Aspirin 81 mg 12/12/19 10:00 12/14/19 10:57 Asa - PO 81 mg DAILY REDD Administration Atorvastatin Calcium 40 mg 12/12/19 22:00 12/14/19 22:20 Lipitor - PO 40 mg HS REDD Administration Calamine 1 applic 12/13/19 15:24 12/13/19 16:58 Calamine 8% Topical Lotion - TP 1 applic DAILY PRN Administration FOR ITCHING Colchicine 0.6 mg 12/14/19 13:45 12/14/19 22:20 Colcrys PO 0.6 mg BID REDD Administration Diphenhydramine HCl 25 mg 12/12/19 10:21 12/14/19 11:01 Benadryl Injection - IVPB 25 mg Q8H PRN Administration pruritis Glimepiride 2 mg 12/12/19 07:00 12/15/19 07:14 Amaryl - PO 2 mg DAILY@0700 [facility] Administration Heparin Sodium (Porcine) 5,000 unit 12/14/19 22:00 12/15/19 07:14 Heparin - SQ 5,000 unit TID [facility] Administration Hydroxyzine HCl 10 mg 12/12/19 10:23 12/14/19 13:04 Atarax Liquid - PO 10 mg Q12H PRN Administration FOR ITCHING Loratadine 10 mg 12/13/19 16:00 12/14/19 10:58 Claritin - PO 10 mg DAILY [facility] Administration Losartan Potassium 50 mg/ 75 mg 12/12/19 10:00 12/14/19 10:58 Losartan Potassium 25 mg PO 75 mg DAILY [facility] Administration Metoprolol Tartrate 37.5 mg 12/12/19 10:00 12/14/19 11:00 Lopressor - PO 37.5 mg DAILY [facility] Administration Naproxen 500 mg 12/14/19 22:00 12/14/19 22:22 Naprosyn - PO Not Given BID [facility] Prednisone 10 mg 12/14/19 13:45 12/14/19 15:03 Deltasone - PO 10 mg DAILY [facility] Administration Home Medications Medication Instructions Recorded Atorvastatin Ca [Lipitor] 40 mg PO HS 11/21/15 Losartan Potassium 75 mg PO DAILY 11/21/15 metFORMIN HCL [Metformin HCl] 500 mg PO DAILY 11/21/15 Aspirin [ASA -] 81 mg PO DAILY 12/09/19 Glimepiride 2 mg PO BID 12/09/19 Metoprolol Tartrate 37.5 mg PO BID 12/09/19 Doxycycline Hyclate 100 mg PO BID 12/12/19 Mupirocin Cream [Bactroban 2% 1 applic TP BID 12/12/19 Cream -] Triamcinolone 0.1% Cream 1 applic TD DAILY 12/12/19 [Aristocort 0.1% Cream -] metFORMIN HCL [Metformin HCl ER] 500 mg PO BID 12/13/19 Microbiology 12/11/19 20:36 Blood - Peripheral Venous Blood Culture - Preliminary NO GROWTH OBTAINED AFTER 72 HOURS, INCUBATION TO CONTINUE FOR 2 DAYS. 12/11/19 20:36 Blood - Peripheral Venous Blood Culture - Preliminary NO GROWTH OBTAINED AFTER 72 HOURS, INCUBATION TO CONTINUE FOR 2 DAYS. 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 #Acute Leukocytoclastic vasculitis: Unknown reason at this time. needs further w /u as an outpatient. No systemic involvement ( renal failure, hematuria, glomerulonephritis, or neurological/ pulmonary symptoms . as per to dc the patient on prednisone 7.5mg and colchicine 0.6 BID follow IGA, and Hep C serology, and ANCA , complement levels, further w/u as an outpatient, patient will follow up with dr bravo. Also discussed in details that he needs to see an allergenist for further allergy testing to find the real cause of his reaction. discussed with the patient in details. obtain CT of the Abd/pelvis: BL nephrolithiasis with no evidence of obstructive uropathy. prostatic enlargement ,moderate fecal impaction. will give suppositories. # H/o HTN: cont metorpolol and losartan # H/o DM: cont Amaryl and hold metformin # H/O Bioprosthetic AVR, cont ASA DVT Px: ambulation. add heparin sq
[2019-12-15] MEDS ORDERED: LOSARTAN POTASSIUM 25 MG TABLET ONE (10:43)
[2019-12-15] MEDS ORDERED: LOSARTAN POTASSIUM 50 MG TABLET ONE (10:43)
[2019-12-15] MEDS: predniSONE 5 MG TABLET (UD) PO SCH (10:53)
[2019-12-15] MEDS: COLCHICINE 0.6 MG CAP PO SCH (10:54)
[2019-12-15] MEDS: ASPIRIN 81 MG CHEWABLE TABLETS PO SCH (10:54)
[2019-12-15] MEDS: METOPROLOL TARTRATE 25 MG TABLET (FP) PO SCH (10:54)
[2019-12-15] MEDS: LOSARTAN POTASSIUM 50 MG, LOSARTAN POTASSIUM 25 MG PO SCH (10:55)
[2019-12-15] MEDS: LORATADINE 10 MG TABLET PO SCH (10:55)
[2019-12-15] MEDS: hydrOXYzine HCL 10 MG/5 ML LIQUID BULK BOTTLE PO PRN (10:55)
[2019-12-15] MEDS: NAPROXEN 500 MG TABLET PO SCH (10:56)
--- NOTE | 2019-12-15 15:20 | DS ---
Physical Exam: SUBJECTIVE: Patient seen and examined OBJECTIVE: Vital Signs Period Temp Pulse Resp BP Sys/Cano Pulse Ox Last 24 Hr 97.5 F-99.0 F 63-77 18-20 100-130/52-69 96-96 PHYSICAL EXAM GENERAL: The patient is awake, alert, and fully oriented, in no acute distress. HEAD: Normal with no signs of trauma. EYES: PERRL, extraocular movements intact, sclera anicteric, conjunctiva clear. ENT: Ears normal, nares patent, oropharynx clear without exudates, moist mucous membranes. NECK: Trachea midline, full range of motion, supple. LUNGS: Breath sounds equal, clear to auscultation bilaterally, no wheezes, no crackles, no accessory muscle use. HEART: Regular rate and rhythm, S1, S2 without murmur, rub or gallop. ABDOMEN: Soft, nontender, nondistended, normoactive bowel sounds, no guarding, no rebound, no hepatosplenomegaly, no masses. EXTREMITIES: 2+ pulses, warm, well-perfused, no edema. NEUROLOGICAL: Cranial nerves II through XII grossly intact. Normal speech, gait not observed. PSYCH: Normal mood, normal affect. SKIN: Warm, dry, normal turgor, no rashes or lesions noted. LABS Laboratory Results - last 24 hr 12/12/19 12/12/19 12/14/19 06:00 06:20 13:50 Sodium Potassium Chloride Carbon Dioxide Anion Gap BUN Creatinine Est GFR (CKD-EPI)AfAm Est GFR (CKD-EPI)NonAf POC Glucometer Random Glucose Calcium Total Bilirubin Direct Bilirubin AST ALT Alkaline Phosphatase Total Protein Albumin Urine Color Urine Appearance Urine pH Ur Specific Lissie Urine Protein Urine Glucose (UA) Urine Ketones Urine Blood Urine Nitrite Urine Bilirubin Urine Urobilinogen Ur Leukocyte Esterase c-ANCA <1:20 Proteinase 3 (PR3) <3.5 p-ANCA <1:20 Atypical p-ANCA <1:20 Myeloperoxidase Ab <9.0 RPR Titer Nonreactive HCV Quantitation Hcv not detected HCV RNA log copies/mL TN 12/14/19 12/15/19 12/15/19 17:00 06:35 07:11 Sodium 138 Potassium 3.9 Chloride 103 Carbon Dioxide 29 Anion Gap 6 L BUN 12.4 Creatinine 0.7 Est GFR (CKD-EPI)AfAm 124.87 Est GFR (CKD-EPI)NonAf 107.74 POC Glucometer 125 Random Glucose 133 H Calcium 8.7 Total Bilirubin 1.0 Direct Bilirubin 0.3 H AST 15 ALT 30 Alkaline Phosphatase 78 Total Protein 7.0 Albumin 3.3 L Urine Color Yellow Urine Appearance Clear Urine pH 7.5 D Ur Specific Lissie 1.007 L Urine Protein Negative Urine Glucose (UA) Negative Urine Ketones Negative Urine Blood Negative Urine Nitrite Negative Urine Bilirubin Negative Urine Urobilinogen 0.2 Ur Leukocyte Esterase Negative c-ANCA Proteinase 3 (PR3) p-ANCA Atypical p-ANCA Myeloperoxidase Ab RPR Titer HCV Quantitation HCV RNA log copies/mL HOSPITAL COURSE: Date of Admission:12/11/19 Date of Discharge: 12/15/19 Discharge Summary Problems reviewed: Yes Reason For Visit: RASH Current Active Problems Leukocytoclastic vasculitis (Acute) Rash (Acute) Condition: Improved - Instructions Diet, Activity, Other Instructions: YOUR VISIT You came to the hospital because you were feeling itchy and had a rash. You were admitted to the hospital for care of this concern. While here you were seen by an infectious disease specialist, candle molder machine, and lan administrator. It was determined that you were experiencing a vasculitis (LEukocytoclastic Vasculitis) and received medical treatment. You are now stable and may return home. MEDICATIONS Please continue to take your medications as prescribed. NEW MEDICATIONS - Prednisone 7.5 mg by mouth every morning (three 2.5 mg tabs in the morning) - Colchicine 0.6 mg by mouth twice a day Please continue to take these medications and follow up with the candle molder machine within 1 week. ADDITIONAL CARE Please make an appointment to see your primary care provider, Dr. Miller, 1 week from today. Please make an appointment to see a candle molder machine in 1 week. A referral has to Dr. Nance has been provided. Please make an appointment to see a lan administrator in 1 week. A referral has to Dr. Barr has been provided. ADDITIONAL INFORMATION Please call 911 or come directly to the emergency department if you experience unusual headache, vision change, shortness of breath, chest pain, numbness, tingling, loss of alertness/awareness, loss of function, unusual bleeding or any alarming symptoms. Referrals: Dina Barr MD [Staff Physician] - Albert Miller MD [Primary Care Provider] - Marshall Nance MD [Staff Physician] - Disposition: HOME - Home Medications Comprehensive Discharge Medication List: Ambulatory Orders Atorvastatin Ca [Lipitor] 40 mg PO HS 11/21/15 Losartan Potassium 75 mg PO DAILY 11/21/15 Aspirin [ASA -] 81 mg PO DAILY 12/09/19 Glimepiride 2 mg PO BID 12/09/19 Metoprolol Tartrate 37.5 mg PO BID 12/09/19 metFORMIN HCL [Metformin HCl ER] 500 mg PO BID 12/13/19 Colchicine 0.6 mg PO BID 30 Days #60 capsule 12/15/19 Prednisone 2.5 mg PO TID 7 Days #21 tablet 12/15/19 ATTENDING PHYSICIAN STATEMENT I saw and evaluated the patient. I reviewed the resident's note and discussed the case with the resident. I agree with the resident's findings and plan as documented. SUBJECTIVE: OBJECTIVE: ASSESSMENT AND PLAN:
--- NOTE | 2019-12-15 15:45 | PN ---
Progress Note (short form) - Note Progress Note: The patient was started on Predniosne 10 mg/d Colchicine 0.6 mg BID and Naproxen 500 mg BID. He reports pain in the left heel. Pain in hands and knees resolved. Skin rash related to vasculitis is improving, and partial improvement in pruritus. No fever. On the physicl examination lungs are clear, S1 and S2 normal with no gallop and mo murmur. No active joints. Tenderness in left nusrat (plantar fasciitis). Skin rash with midl improvement. Laboratory work-up revealed AIDE, ANCA, myeloperoxidase and proteinase-3 negative. Complement is pending. Impression. Hypersensitivity vasculitis. Etiology not clear, rule out primary disease. Improving. Plan: Decrease Prednisone to 7.5 mg/d and I will follow him as outpatient. T Problem List - Problems (1) Leukocytoclastic vasculitis Code(s): M31.0 - HYPERSENSITIVITY ANGIITIS
[2019-12-15] MEDS ORDERED: EPINEPHrine 1:1,000 1 MG/1 ML - 30ML VIAL (INJECTION) SQ PRN (17:14)
[2019-12-15] MEDS ORDERED: DEXAMETHASONE SOD PHOSPHATE 10 MG/1 ML VIAL IVPB ONE (17:15)
--- NOTE | 2019-12-15 17:19 | PN ---
Physical Exam: SUBJECTIVE: Patient seen and examined at bedside. Overnight there were no new events. Today the pt is experiencing facial and lip swelling. Itchiness mostly resolved. He denies SOB and CP. OBJECTIVE: Vital Signs Temp Pulse Resp BP Pulse Ox 98.0 F 69 18 124/71 96 12/15/19 17:21 12/15/19 17:21 12/15/19 17:21 12/15/19 17:21 12/15/19 09:00 GENERAL: AOx3, in no acute distress. Labial and zygomatic edema. HEAD: NCAT EYES: MICH, EOMI, conjunctiva clear. ENT: Ears normal, nares patent, oropharynx clear without exudates. Moist mucous membranes. NECK: Normal range of motion, supple without lymphadenopathy, JVD, or masses. LUNGS: CTAB. No wheezes, and no crackles. No accessory muscle use. HEART: RRR s1 s2 systolic murmur with radiation to carotid ABDOMEN: Soft, BS present in all 4 quadrants, non-distended, no JVD, MUSCULOSKELETAL: No bony deformities or tenderness. No CVA tenderness. UPPER EXTREMITIES: LEFT hand swelling 1-4 mm red, lesions on hands. 2+ pulses, warm, well-perfused. No cyanosis. No clubbing. No peripheral edema. LOWER EXTREMITIES: Purpura scattered diffusely from feet up to knees; 2-6 mm red , circular. 2+ pulses, warm, well-perfused. No calf tenderness. No peripheral edema. NEUROLOGICAL: No focal deficits. Cranial nerves II-XII intact. Normal speech. Gait not appreciated. PSYCHIATRIC: Cooperative. Good eye contact. Appropriate mood and affect. SKIN: Indurations on flexor surface of LE and on gluteal cleft LEFT. Warm, dry, normal turgor, normal capillary refill. Laboratory Results - last 24 hr 12/12/19 12/14/19 12/14/19 06:00 13:50 17:00 Sodium Potassium Chloride Carbon Dioxide Anion Gap BUN Creatinine Est GFR (CKD-EPI)AfAm Est GFR (CKD-EPI)NonAf POC Glucometer Random Glucose Calcium Total Bilirubin Direct Bilirubin AST ALT Alkaline Phosphatase Total Protein Albumin Urine Color Yellow Urine Appearance Clear Urine pH 7.5 D Ur Specific Berkley 1.007 L Urine Protein Negative Urine Glucose (UA) Negative Urine Ketones Negative Urine Blood Negative Urine Nitrite Negative Urine Bilirubin Negative Urine Urobilinogen 0.2 Ur Leukocyte Esterase Negative RPR Titer Nonreactive HCV Quantitation Hcv not detected HCV RNA log copies/mL TNP 12/15/19 12/15/19 12/15/19 06:35 07:11 16:46 Sodium 138 Potassium 3.9 Chloride 103 Carbon Dioxide 29 Anion Gap 6 L BUN 12.4 Creatinine 0.7 Est GFR (CKD-EPI)AfAm 124.87 Est GFR (CKD-EPI)NonAf 107.74 POC Glucometer 125 248 Random Glucose 133 H Calcium 8.7 Total Bilirubin 1.0 Direct Bilirubin 0.3 H AST 15 ALT 30 Alkaline Phosphatase 78 Total Protein 7.0 Albumin 3.3 L Urine Color Urine Appearance Urine pH Ur Specific Berkley Urine Protein Urine Glucose (UA) Urine Ketones Urine Blood Urine Nitrite Urine Bilirubin Urine Urobilinogen Ur Leukocyte Esterase RPR Titer HCV Quantitation HCV RNA log copies/mL Active Medications Aspirin (Asa -) 81 mg PO DAILY [facility] Last Admin: 12/15/19 10:54 Dose: 81 mg Atorvastatin Calcium (Lipitor -) 40 mg PO HS [facility] Last Admin: 12/14/19 22:20 Dose: 40 mg Calamine (Calamine 8% Topical Lotion -) 1 applic TP DAILY PRN PRN Reason: FOR ITCHING Last Admin: 12/13/19 16:58 Dose: 1 applic Colchicine (Colcrys) 0.6 mg PO BID [facility] Last Admin: 12/15/19 10:54 Dose: 0.6 mg Dexamethasone Sodium Phosphate (Decadron Injection -) 4 mg IVPB Q6H [facility] Diphenhydramine HCl (Benadryl Injection -) 25 mg IVPB Q8H PRN PRN Reason: pruritis Last Admin: 12/14/19 11:01 Dose: 25 mg Diphenhydramine HCl (Benadryl Injection -) 25 mg IVPUSH Q6H PRN PRN Reason: FOR ITCHING Epinephrine (Epinephrine 1:1,000 -) 0.4 mcg SQ ONCE PRN PRN Reason: anaphylaxis Glimepiride (Amaryl -) 2 mg PO DAILY@0700 [facility] Last Admin: 12/15/19 07:14 Dose: 2 mg Heparin Sodium (Porcine) (Heparin -) 5,000 unit SQ TID [facility] Last Admin: 12/15/19 15:46 Dose: 5,000 unit Hydroxyzine HCl (Atarax Liquid -) 10 mg PO Q12H PRN PRN Reason: FOR ITCHING Last Admin: 12/15/19 10:55 Dose: 10 mg Famotidine/Sodium Chloride (Pepcid 20 Mg Premixed Ivpb -) 20 mg in 50 mls @ 100 mls/hr IVPB BID [facility] Last Admin: 12/15/19 21:36 Dose: 100 mls/hr Sodium Chloride (Normal Saline -) 1,000 mls @ 75 mls/hr IV ASDIR [facility] Stop: 12/16/19 07:49 Last Admin: 12/15/19 18:48 Dose: 75 mls/hr Loratadine (Claritin -) 10 mg PO DAILY [facility] Last Admin: 12/15/19 10:55 Dose: 10 mg Losartan Potassium 50 mg/ (Losartan Potassium 25 mg) 75 mg PO DAILY [facility] Last Admin: 12/15/19 10:55 Dose: 75 mg Metoprolol Tartrate (Lopressor -) 37.5 mg PO DAILY [facility] Last Admin: 12/15/19 10:54 Dose: 37.5 mg Naproxen (Naprosyn -) 500 mg PO BID [facility] Last Admin: 12/15/19 10:56 Dose: 500 mg Prednisone (Deltasone -) 10 mg PO DAILY [facility] Last Admin: 12/15/19 10:53 Dose: 10 mg ASSESSMENT/PLAN: 54 y/o male PMH HTN, HLD, DM, CVA with RIGHT visual field deficit, s/p aortic valve replacement bioprosthetic valve in 2018 2/2 fibroelastoma c/o rash on UE and LE. Pt returning from trip to [place], no new foods/cosmetics/herbs, and no other family members with similar symptoms. Biopsy results from dermatology visit prior to admission reporting leukocytoclastic vasculitis. Was planned for DC today but developed facial swelling consistent with allergic reaction; unclear of causative agent. # Allergic reaction - Rapidly progressive cheek swelling and then lip swelling w/in 30 minutes - New meds introduced include naproxen, prednisone, and colchicine but cannot r/ o poss food allergy or homeopathic agents brought from home - Poss causitive medications held - Diphenhydramine 50 mg IV ONCE provided with some relief - Suzi HERNANDEZ and daughter Merline, student-RN kept abreast of all clinical decisions; both actively at bedside throughout day - Anaphylaxis prophylaxis: decadron 10 mg IV once, decadron 4 mg iv q6h, famotidine 20 mg iv BID # Rash consistent with leukocytoclastic vasculitis - Once stable will re-evaluate out-pt plan for med regimen but was considering Prednisone 7.5 mg PO QD, Colchicine 0.6 mg PO BID - No systemic involvement - Pt had biopsy performed (Dr. Dina Barr) s/p failed out-pt tx with topical steroids and topical bactroban - ID consulted - Dermatology consulted - Rheumatology consulted: pending hep c, complement , AIDE, ANCA, IGA - Hepatitis B serology NEG - HIV pending. Hep B, HCV, RPR, and Gonorrhea NEG - Stool and blood cx pending # Bioprosthetic AVR - Aspirin 81 mg PO QD # DM - Hold home regimen - Glimeperide 2 mg PO QD - ISS ACHS # HTN - Cont. curent home regimen: Losartan 75 mg PO QD, Metoprolol tartrate 37.5 mg PO QD # HLD - Cont. curent home regimen: Atorvastatin 40 mg po hs # F/E/N - PO - Cont. to monitor - Low sodium, diabetic diet # DVT prophylaxis - Regular ambulation # Disposition - Med/surg Carlos Alberto Benedict MD Visit type - Emergency Visit Emergency Visit: No - New Patient This patient is new to me today: No - Critical Care Critical Care patient: No ATTENDING PHYSICIAN STATEMENT I saw and evaluated the patient. I reviewed the resident's note and discussed the case with the resident. I agree with the resident's findings and plan as documented. SUBJECTIVE: OBJECTIVE: ASSESSMENT AND PLAN:
--- NOTE | 2019-12-15 17:23 | HOSP ---
Physical Examination Vital Signs: Vital Signs Temperature 98.1 F 12/15/19 14:00 Pulse Rate 67 12/15/19 14:00 Respiratory Rate 18 12/15/19 14:00 Blood Pressure 121/69 12/15/19 14:00 O2 Sat by Pulse Oximetry (%) 96 12/15/19 09:00 Pt was for dc but developed progressive face and lip swelling. Offending agent not clear. All meds held. IV benadryl 50 mg once delivered. Decadron 10 mg starting and 4 mg q6h started. Famotidine 20 mg iv BID for h2 blocking properties started. Pt stable. Malampati 1. No wheezes on pulm auscultaiton. No tracheal breathing. No pruritis. VSS as noted above Labs: CBC, BMP 12/14/19 07:40 12/15/19 06:35 Visit type - Emergency Visit Emergency Visit: No - New Patient This patient is new to me today: No - Critical Care Critical Care patient: No
[2019-12-15] MEDS ORDERED: SODIUM CHLORIDE 1,000 ML IV SCH (18:30)
[2019-12-15] MEDS: FAMOTIDINE 20 MG/50 ML IVPB 20 MG/50 ML MG IVPB SCH (21:36)
[2019-12-15] MEDS: DEXAMETHASONE SOD PHOSPHATE 4 MG/1 ML VIAL IVPB SCH (23:29)
[2019-12-16] MEDS: DEXAMETHASONE SOD PHOSPHATE 4 MG/1 ML VIAL IVPB SCH ×2 (05:23→12:18)
[2019-12-16] MEDS: INSULIN SLIDING SCALE (NOVOLOG) 1 VIAL SQ SCH ×2 (06:26→12:21)
[2019-12-16] MEDS: FAMOTIDINE 20 MG/50 ML IVPB 20 MG/50 ML MG IVPB SCH (11:09)
--- NOTE | 2019-12-16 12:12 | PN ---
Progress Note, Physician History of Present Illness: improving itching improving biopsy result noted - Current Medication List Current Medications: Active Medications Aspirin (Asa -) 81 mg PO DAILY [facility] Last Admin: 12/15/19 10:54 Dose: 81 mg Atorvastatin Calcium (Lipitor -) 40 mg PO HS [facility] Last Admin: 12/14/19 22:20 Dose: 40 mg Calamine (Calamine 8% Topical Lotion -) 1 applic TP DAILY PRN PRN Reason: FOR ITCHING Last Admin: 12/13/19 16:58 Dose: 1 applic Colchicine (Colcrys) 0.6 mg PO BID [facility] Last Admin: 12/15/19 10:54 Dose: 0.6 mg Dexamethasone Sodium Phosphate (Decadron Injection -) 4 mg IVPB Q6H [facility] Last Admin: 12/16/19 05:23 Dose: 4 mg Diphenhydramine HCl (Benadryl Injection -) 25 mg IVPB Q8H PRN PRN Reason: pruritis Last Admin: 12/14/19 11:01 Dose: 25 mg Diphenhydramine HCl (Benadryl Injection -) 25 mg IVPUSH Q6H PRN PRN Reason: FOR ITCHING Epinephrine (Epinephrine 1:1,000 -) 0.4 mcg SQ ONCE PRN PRN Reason: anaphylaxis Glimepiride (Amaryl -) 2 mg PO DAILY@0700 [facility] Last Admin: 12/15/19 07:14 Dose: 2 mg Heparin Sodium (Porcine) (Heparin -) 5,000 unit SQ TID [facility] Last Admin: 12/15/19 15:46 Dose: 5,000 unit Hydroxyzine HCl (Atarax Liquid -) 10 mg PO Q12H PRN PRN Reason: FOR ITCHING Last Admin: 12/15/19 10:55 Dose: 10 mg Famotidine/Sodium Chloride (Pepcid 20 Mg Premixed Ivpb -) 20 mg in 50 mls @ 100 mls/hr IVPB BID [facility] Last Admin: 12/16/19 11:09 Dose: 100 mls/hr Insulin Aspart (Novolog Vial Sliding Scale -) 1 vial SQ ACHS [facility]; Protocol Last Admin: 12/16/19 06:26 Dose: 4 units Loratadine (Claritin -) 10 mg PO DAILY [facility] Last Admin: 12/15/19 10:55 Dose: 10 mg Losartan Potassium 50 mg/ (Losartan Potassium 25 mg) 75 mg PO DAILY [facility] Last Admin: 12/15/19 10:55 Dose: 75 mg Metoprolol Tartrate (Lopressor -) 37.5 mg PO DAILY [facility] Last Admin: 12/15/19 10:54 Dose: 37.5 mg Naproxen (Naprosyn -) 500 mg PO BID [facility] Last Admin: 12/15/19 10:56 Dose: 500 mg Prednisone (Deltasone -) 10 mg PO DAILY [facility] Last Admin: 12/15/19 10:53 Dose: 10 mg - Objective Vital Signs: Vital Signs Temperature 97.8 F 12/16/19 07:50 Pulse Rate 63 12/16/19 07:50 Respiratory Rate 18 12/16/19 07:50 Blood Pressure 142/74 12/16/19 07:50 O2 Sat by Pulse Oximetry (%) 99 12/15/19 21:00 Constitutional: Yes: No Distress, Calm Cardiovascular: Yes: S1, S2 Respiratory: Yes: Regular, CTA Bilaterally Gastrointestinal: Yes: Normal Bowel Sounds, Soft Musculoskeletal: Yes: WNL Extremities: Yes: WNL Neurological: Yes: Alert, Oriented Psychiatric: Yes: Alert, Oriented Labs: CBC, BMP 12/14/19 07:40 12/15/19 06:35 INR, PTT INR 0.95 (0.83-1.09) 12/11/19 18:00 Assessment/Plan Purpuric, itchy rash starting from lower extremities, spreading to wrists bilaterally, acute in onset after recent travel to [facility]. Right leg eschar post scratching 54 y/o male PMH HTN, HLD, DM, CVA with RIGHT visual field deficit, s/p aortic valve replacement bioprosthetic valve in 2018 2/2 fibroelastoma c/o rash on UE and LE. Pt returning from trip to [facility], no new foods/cosmetics/herbs, and no o ther family members with similar symptoms. # Rash # Bioprosthetic AVR # DM # HTN # HLD - plan continue current mgmt rest as per the team
--- NOTE | 2019-12-16 13:49 | PN ---
Progress Note (short form) - Note Progress Note: Yesterday the patient developed significnat swelling of face, suggestive of allergic / anaphylactic reaction. He did not have wheezing or shortness of breath and resolved with Benadryl and Decadron. Partial improvement in rash in lower liumbs. P/E No fever, Lungs clear. S1 and XS2 normal, no murmurm. No actrive joints. Purpuric rash in lowers limbs, improving. Laboratory work-up: anti-DNAds negative, complement normal (C3: 151 and c4: 37) . UA normal. Impression Possible anbaphylactic reaction secondary to Colchicine (the patient did not take Naproxen), improving. 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 Plan: Conbtinue with Tapering doses of Decadron. I will follow him in my office as outpatient Problem List - Problems (1) Leukocytoclastic vasculitis Code(s): M31.0 - HYPERSENSITIVITY ANGIITIS
--- NOTE | 2019-12-16 14:44 | DS ---
Physical Exam: SUBJECTIVE: Patient seen and examined at bedside. There were no acute events overnight. This AM he offers no new complaints. OBJECTIVE: Vital Signs Period Temp Pulse Resp BP Sys/Cano Pulse Ox Last 24 Hr 97.6 F-98.0 F 60-69 18-18 124-148/69-82 99 PHYSICAL EXAM GENERAL: AOx3, in no acute distress. Labial and zygomatic edema. HEAD: NCAT EYES: MICH, EOMI, conjunctiva clear. ENT: Ears normal, nares patent, oropharynx clear without exudates. Moist mucous membranes. NECK: Normal range of motion, supple without lymphadenopathy, JVD, or masses. LUNGS: CTAB. No wheezes, and no crackles. No accessory muscle use. HEART: RRR s1 s2 systolic murmur with radiation to carotid ABDOMEN: Soft, BS present in all 4 quadrants, non-distended, no JVD, MUSCULOSKELETAL: No bony deformities or tenderness. No CVA tenderness. UPPER EXTREMITIES: LEFT hand swelling 1-4 mm red, lesions on hands. 2+ pulses, warm, well-perfused. No cyanosis. No clubbing. No peripheral edema. LOWER EXTREMITIES: Purpura scattered diffusely from feet up to knees; 2-6 mm red , circular. 2+ pulses, warm, well-perfused. No calf tenderness. No peripheral edema. NEUROLOGICAL: No focal deficits. Cranial nerves II-XII intact. Normal speech. Gait not appreciated. PSYCHIATRIC: Cooperative. Good eye contact. Appropriate mood and affect. SKIN: Indurations on flexor surface of LE and on gluteal cleft LEFT. Warm, dry, normal turgor, normal capillary refill. 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 Pt returned from [place] Year trip in [facility] and had no reported behavior/ medicine changes. Cause of rash unclear but was bx prior to hospitalization. Stay was complicated by acute allergic reaction; agent unclear. All medications were stopped and diphenhydramine was administered. Reaction was rapidly progressive (no airway compromise) and included cheek swelling and then lip swelling w/in 30 minutes. New meds introduced include naproxen, prednisone, and colchicine but cannot r/o poss food allergy or homeopathic agents brought from home. Suzi RN and daughter Merline, douglas-RN kept abreast of all clinical decisions; both actively at bedside throughout stay. Anaphylaxis prophylaxis included decadron 10 mg IV once, decadron 4 mg iv q6h, famotidine 20 mg iv BID. Pt was seen by rhematology and rec once stable, re-evaluation for out-pt plan for med regimen but was considering Prednisone 7.5 mg PO QD, Colchicine 0.6 mg PO BID. Hepatitis B serology NEG, HIV pending, gonorrhea NEG. Pt symptoms resolved and he was dc to home with f/u rheum. and derm. Date of Discharge: 12/16/19 Carlos Alberto Benedict MD Minutes to complete discharge: 40 Discharge Summary Problems reviewed: Yes Reason For Visit: RASH Current Active Problems Leukocytoclastic vasculitis (Acute) Rash (Acute) Condition: Improved - Instructions Diet, Activity, Other Instructions: YOUR VISIT You came to the hospital because you were feeling itchy and had a rash. You were admitted to the hospital for care of this concern. While here, you were seen by an infectious disease specialist, aircraft sheet metal mechanic, and computer systems architect. It was determined that you were experiencing a vasculitis (LEukocytoclastic Vasculitis) and received medical treatment. You are now stable and may return home. MEDICATIONS Please continue to take your medications as prescribed. NEW MEDICATIONS - Decadron 4 mg by mouth every 6 hours for 5 days - Famotidine 40 mg by mouth every day for 7 days - Diphenhydramine (Benadryl) 25 mg by mouth everyday for 7 days - EPI pen for emergencies. Use this pen when you have a sudden allergic reaction to prevent emergencies such as throat swelling or any compromise of your breathing. -Discussed with and decided to increase the dose of Lopressor to 50mg orally 2x per day. -Discontinue Losartan for now. until further testing is done. Please continue to take these medications and follow up with the aircraft sheet metal mechanic within 1 week. ADDITIONAL CARE Please make an appointment to see your primary care provider, Dr. Miller, 1 week from today. Please make an appointment to see a aircraft sheet metal mechanic in 1 week. A referral has to Dr. Nance has been provided. Please make an appointment to see a computer systems architect in 1 week. A referral has to Dr. Barr has been provided. Please make an appointment to seen an knuckler; a referral has been provided to Dr. Luna. ADDITIONAL INFORMATION You are recommended to have a blood test to check for levels of C1 esterase inhibitor to determine if your lip and mouth swelling is a hereditary issue. Please call 911 or come directly to the emergency department if you experience unusual headache, vision change, shortness of breath, chest pain, numbness, tingling, loss of alertness/awareness, loss of function, unusual bleeding or any alarming symptoms. Referrals: Dina Barr MD [Staff Physician] - 1 Week Albert Miller MD [Primary Care Provider] - 1 Week Marshall Nance MD [Staff Physician] - 1 Week Sydney Luna [Non Staff, Medical] - 1 Week Disposition: HOME - Home Medications Comprehensive Discharge Medication List: Ambulatory Orders Atorvastatin Ca [Lipitor] 40 mg PO HS 11/21/15 Aspirin [ASA -] 81 mg PO DAILY 12/09/19 Glimepiride 2 mg PO BID 12/09/19 metFORMIN HCL [Metformin HCl ER] 500 mg PO BID 12/13/19 Dexamethasone [Decadron] 4 mg PO Q6H #20 tablet 12/16/19 Diphenhydramine [Benadryl -] 50 mg PO Q8H PRN 7 Days #21 capsule 12/16/19 EPINEPHrine (EPI-PEN 0.3MG) [Epipen 0.3MG -] 0.3 mg IM ASDIR #2 pens 12/16/19 Famotidine [Pepcid -] 40 mg PO DAILY #7 tablet 12/16/19 Metoprolol Tartrate [Lopressor] 50 mg PO BID 30 Days #60 tablet 01/16/20 This patient is new to me today: No Emergency Visit: No Critical Care patient: No - Discharge Referral Referred to [facility] No ATTENDING PHYSICIAN STATEMENT I saw and evaluated the patient. I reviewed the resident's note and discussed the case with the resident. I agree with the resident's findings and plan as documented. SUBJECTIVE: OBJECTIVE: ASSESSMENT AND PLAN:
[2019-12-16 15:17] VITALS: BP 123/59; PULSE 75; TEMP 98
== END 2019-12-16 16:34 | disposition home or self-care (01) | DRG 547 ==
LOC: JER 16:47 → JERBED 20:26 → J8W 22:47
PROVIDERS: ADMIT Internal Medicine; ATTEND Internal Medicine
DX: M31.0 Hypersensitivity angiitis (principal); E78.5 Hyperlipidemia, unspecified; I10 Essential (primary) hypertension; E11.9 Type 2 diabetes mellitus without complications; R01.1 Cardiac murmur, unspecified; K76.0 Fatty (change of) liver, not elsewhere classified; Z86.73 Personal history of transient ischemic attack (TIA), and cerebral infarction without residual deficits; Z95.2 Presence of prosthetic heart valve
CPT/HCPCS: 36415; 71045-TC-FY; 74176-TC; 80048; 80053; 80076; 81003; 82595; 82784; 82962; 83520; 83615; 83883; 85025; 85027; 85610; 85651; 85730; 86038; 86140; 86160; 86225; 86256; 86593; 86704; 86705; 86706; 86707; 87040; 87045; 87046; 87389; 87522; 93005; 93010; 93306-TC; 93970-TC; 99283-25; J1100; J1644; Q9967

== ENCOUNTER 2022-01-20 09:15 | Emergency (ER) | payer BC ==
[2022-01-20 09:43] VITALS: BP 155/49; PULSE 54; TEMP 98.4; BMI 23.1
[2022-01-20 10:09] LABS: EPITHELIAL CELLS FEW /hpf
== END 2022-01-20 13:08 | disposition home or self-care (01) ==
LOC: FER 09:15
DX: N20.0 Calculus of kidney (principal); R31.9 Hematuria, unspecified
CPT/HCPCS: 76775-TC; 81003; 81015; 87086; 99284-25

== ENCOUNTER 2022-05-13 04:17 | Day surgery (SDC) | payer BC ==
[2022-05-10 13:29] VITALS: BMI 23.1
[2022-05-13] MEDS ORDERED: MIDAZOLAM HCL 2 MG/2 ML SINGLE DOSE VIAL ONE (08:58)
[2022-05-13] MEDS ORDERED: PROPOFOL 20 ML ONE (09:00)
[2022-05-13 10:13] VITALS: BP 152/70; PULSE 46; TEMP 97.3
== END 2022-05-13 10:40 | disposition home or self-care (01) ==
LOC: JASU-SURG 04:17
PROVIDERS: ATTEND Urology
PROC: 0TF3XZZ Fragmentation in Right Kidney Pelvis, External Approach (ICD-10-PCS; principal; 2022-05-13 09:00)
DX: N20.0 Calculus of kidney (principal)
CPT/HCPCS: 82962

== ENCOUNTER 2022-05-29 18:37 | Inpatient (IN) | payer BC ==
[2022-05-29] MEDS ORDERED: methylPREDNISolone NA SUCC 125 MG/2 ML VIAL IVPB ONE (20:03)
[2022-05-29] MEDS ORDERED: methylPREDNISolone NA SUCC 125 MG/2 ML VIAL ONE (20:25)
[2022-05-29 20:44] LABS: BASO % 0.5 % (0-2.0); EOS % 0.7 % (0-4.5); HEMATOCRIT 47.7 % (35.4-49); HEMOGLOBIN 15.9 GM/dL (11.7-16.9); LYMPH % 19.4 % (8-40); MCH 28.9 pg (25.7-33.7); MCHC 33.2 g/dl (32.0-35.9); MEAN CELL VOLUME 86.9 fl (80-96); MEAN PLT VOLUME 8.6 fl (7.5-11.1); MONO % 6.4 % (3.8-10.2); PLATELET COUNT 295 10^3/uL (134-434); RBC 5.49 M/mm3 (4.00-5.60); RDW 13.2 % (11.9-15.9)
[2022-05-29] MEDS ORDERED: ACETAMINOPHEN 1000 MG/100 ML BAG IVPB ONE (20:59)
[2022-05-29 21:07] LABS: CHLORIDE 99 mmol/L (98-107); SODIUM 138 mmol/L (136-145)
[2022-05-29 21:10] LABS: ALBUMIN 4.4 g/dl (3.4-5.0); ANION GAP 8 MMOL/L (8-16); BLOOD UREA NITROGEN 13.2 mg/dL (7-18); CO2 32 mmol/L (21-32); GLUCOSE,RANDOM 168 mg/dL (74-106)
[2022-05-29 21:13] LABS: CREATININE 0.9 mg/dL (0.55-1.3); SGOT/AST 22 U/L (15-37); SGPT/ALT 61 U/L (13-61)
[2022-05-29 21:15] LABS: BILIRUBIN,TOTAL 0.7 mg/dL (0.2-1); TOT PROT 8.4 g/dl (6.4-8.2)
[2022-05-29 21:16] LABS: ALK PHOS 99 U/L (45-117)
[2022-05-29] MEDS ORDERED: ACETAMINOPHEN INJECTION 100 ML IVPB ONE (21:17)
[2022-05-29 21:33] LABS: ERYTHROCYTE SEDIMENTATION RATE 2 mm/hr (0-20)
[2022-05-29 22:37] VITALS: BMI 22.6
[2022-05-30] MEDS: INSULIN SLIDING SCALE (NOVOLOG) 1 VIAL SQ SCH ×4 (00:27→17:30)
[2022-05-30 08:25] LABS: BASO % 0.2 % (0-2.0); HEMATOCRIT 44.1 % (35.4-49); HEMOGLOBIN 14.8 GM/dL (11.7-16.9); MCHC 33.6 g/dl (32.0-35.9); MEAN CELL VOLUME 86.4 fl (80-96); MEAN PLT VOLUME 8.9 fl (7.5-11.1); MONO % 5.5 % (3.8-10.2); NEUT % 80.3 % (42.8-82.8); PLATELET COUNT 287 10^3/uL (134-434); RDW 12.8 % (11.9-15.9); WHITE BLOOD COUNT 13.5 K/mm3 (4.0-10.0)
[2022-05-30 08:52] LABS: CALCIUM 9.4 mg/dL (8.5-10.1)
[2022-05-30 08:53] LABS: ALBUMIN 3.8 g/dl (3.4-5.0); BLOOD UREA NITROGEN 19.6 mg/dL (7-18); MAGNESIUM 2.3 mg/dL (1.8-2.4)
[2022-05-30 08:56] LABS: CREATININE 0.9 mg/dL (0.55-1.3); PHOSPHOROUS 4.8 mg/dL (2.5-4.9)
[2022-05-30 08:57] LABS: BILIRUBIN,TOTAL 0.7 mg/dL (0.2-1); TOT PROT 7.7 g/dl (6.4-8.2)
[2022-05-30] MEDS ORDERED: methylPREDNISolone NA SUCC 40 MG/1 ML VIAL IVPUSH SCH (10:00)
[2022-05-30] MEDS: methylPREDNISolone NA SUCC 40 MG/1 ML VIAL IVPUSH SCH (11:06)
[2022-05-30] MEDS: METOPROLOL TARTRATE 50 MG TABLET (FP) PO SCH ×2 (11:06→22:30)
[2022-05-30] MEDS: TAMSULOSIN HCL 0.4 MG CAP PO SCH (11:06)
[2022-05-30] MEDS: ASPIRIN 81 MG CHEWABLE TABLETS PO SCH (11:06)
[2022-05-30] MEDS: INSULIN (LEVEMIR) 100 UNITS/ML UNITS SQ SCH ×2 (11:09→21:39)
[2022-05-30] MEDS ORDERED: SODIUM CHLORIDE 1,000 ML IV STA (21:13)
[2022-05-30] MEDS ORDERED: ATORVASTATIN CA 40 MG TABLET (FP) PO SCH (22:00)
[2022-05-31] MEDS: INSULIN SLIDING SCALE (NOVOLOG) 1 VIAL SQ SCH (06:08)
[2022-05-31] MEDS: TAMSULOSIN HCL 0.4 MG CAP PO SCH (08:24)
[2022-05-31] MEDS: ASPIRIN 81 MG CHEWABLE TABLETS PO SCH (08:24)
[2022-05-31] MEDS: METOPROLOL TARTRATE 50 MG TABLET (FP) PO SCH (08:24)
[2022-05-31] MEDS: methylPREDNISolone NA SUCC 40 MG/1 ML VIAL IVPUSH SCH (08:25)
[2022-05-31 08:31] VITALS: BP 136/62; PULSE 67; TEMP 98.8
[2022-06-05 16:08] LABS: ATYPICAL pANCA <1:20 titer (Neg:<1:20); C-ANCA <1:20 titer (Neg:<1:20)
== END 2022-05-31 10:52 | disposition home or self-care (01) | DRG 607 ==
LOC: JERFT 18:37 → JER 18:37 → JERBED 21:13 → J8W 22:26 → OBSVTOIN 22:59
PROVIDERS: ADMIT Hospitalist
DX: R21 Rash and other nonspecific skin eruption (principal); I10 Essential (primary) hypertension; E78.5 Hyperlipidemia, unspecified; E11.9 Type 2 diabetes mellitus without complications; Z86.73 Personal history of transient ischemic attack (TIA), and cerebral infarction without residual deficits
CPT/HCPCS: 0241U-QW; 36415; 80053; 82962; 83520; 83735; 84100; 85025; 85651; 86038; 86140; 86256; 86618; 86780; 87040; 93005; 93010; 99285-25; G0378

== ENCOUNTER 2022-08-18 20:27 | Observation (INO) | payer BC ==
[2022-08-18 20:37] VITALS: BMI 23.1
[2022-08-18] MEDS ORDERED: SODIUM CHLORIDE 0.9% 500 ML INFUS.BAG IV ONE (20:52)
[2022-08-18] MEDS ORDERED: morphine CARPU-JECT 4 MG/1 ML DISP.SYRIN IVPUSH ONE ×2 (20:52→22:21)
[2022-08-18] MEDS ORDERED: ONDANSETRON 4 MG/2 ML VIAL IVPUSH ONE ×2 (20:52→22:43)
[2022-08-18] MEDS ORDERED: morphine SULFATE 4 MG/ML VIAL ONE ×2 (21:23→22:43)
[2022-08-18] MEDS ORDERED: ONDANSETRON 4 MG/2 ML VIAL ONE ×2 (21:23→22:43)
[2022-08-18 21:50] LABS: BASO % 0.4 % (0-2.0); EOS % 0.2 % (0-4.5); HEMATOCRIT 38.8 % (35.4-49); HEMOGLOBIN 12.5 GM/dL (11.7-16.9); LYMPH % 10.1 % (8-40); MCH 27.8 pg (25.7-33.7); MCHC 32.2 g/dl (32.0-35.9); MEAN CELL VOLUME 86.3 fl (80-96); MEAN PLT VOLUME 9.4 fl (7.5-11.1); MONO % 7.8 % (3.8-10.2); NEUT % 81.5 % (42.8-82.8); PLATELET COUNT 210 10^3/uL (134-434); RBC 4.49 M/mm3 (4.00-5.60); RDW 13.8 % (11.9-15.9); WHITE BLOOD COUNT 15.2 K/mm3 (4.0-10.0)
[2022-08-18 21:58] LABS: URINE APPEARANCE CLEAR; URINE COLOR YELLOW
[2022-08-18 21:59] LABS: URINE BILIRUBIN NEGATIVE (NEGATIVE); URINE GLUCOSE (UA) 1+ (NEGATIVE)
[2022-08-18 22:01] LABS: URINE KETONE 2+ (NEGATIVE); URINE LEUK ESTERASE NEGATIVE (NEGATIVE); URINE NITRITE NEGATIVE (NEGATIVE); URINE PROTEIN 1+ (NEGATIVE); URINE UROBILINOGEN 0.2 mg/dL (0.2-1.0)
[2022-08-18 22:05] LABS: ALBUMIN 3.8 g/dl (3.4-5.0); CALCIUM 8.6 mg/dL (8.5-10.1)
[2022-08-18 22:06] LABS: BLOOD UREA NITROGEN 15.2 mg/dL (7-18); EPI CELLS 5 /uL (0-25.1); HYALINE CASTS 1 /uL (0-3.1); URINE BACTERIA 15 /uL (0-1359); URINE RBC 191 /uL (0-23.9); URINE WBC 23 /uL (0-25.8)
[2022-08-18 22:09] LABS: CREATININE 1.1 mg/dL (0.55-1.3)
[2022-08-18 22:10] LABS: BILIRUBIN,TOTAL 1.4 mg/dL (0.2-1); TOT PROT 6.7 g/dl (6.4-8.2)
[2022-08-18] MEDS ORDERED: KETOROLAC TROMETHAMINE 15 MG/ML VIAL IVPUSH ONE (22:50)
[2022-08-18] MEDS ORDERED: KETOROLAC TROMETHAMINE 15 MG/ML VIAL ONE (23:00)
[2022-08-18] MEDS ORDERED: KETOROLAC TROMETHAMINE 15 MG/ML VIAL IVPUSH PRN (23:58)
[2022-08-19] MEDS: INSULIN SLIDING SCALE (NOVOLOG) 1 VIAL SQ SCH ×4 (06:43→21:06)
[2022-08-19] MEDS ORDERED: SODIUM CHLORIDE 1,000 ML IV SCH ×2 (07:30→15:12)
[2022-08-19 08:23] LABS: BASO % 0.4 % (0-2.0); EOS % 1.5 % (0-4.5); HEMATOCRIT 36.2 % (35.4-49); HEMOGLOBIN 11.8 GM/dL (11.7-16.9); LYMPH % 23.6 % (8-40); MCHC 32.7 g/dl (32.0-35.9); MEAN CELL VOLUME 85.6 fl (80-96); MEAN PLT VOLUME 9.2 fl (7.5-11.1); MONO % 9.9 % (3.8-10.2); NEUT % 64.6 % (42.8-82.8); PLATELET COUNT 201 10^3/uL (134-434); RBC 4.23 M/mm3 (4.00-5.60); RDW 13.9 % (11.9-15.9); WHITE BLOOD COUNT 12.4 K/mm3 (4.0-10.0)
[2022-08-19 08:29] LABS: INR 1.09 (0.83-1.09); PROTHROMBIN TIME (PATIENT) 12.6 SEC (9.7-13.0)
[2022-08-19 08:32] LABS: ACTIVATED PTT 24.6 SECONDS (25.2-36.5)
[2022-08-19 08:43] LABS: ALBUMIN 3.1 g/dl (3.4-5.0); BLOOD UREA NITROGEN 12.5 mg/dL (7-18); CALCIUM 7.7 mg/dL (8.5-10.1); MAGNESIUM 1.8 mg/dL (1.8-2.4)
[2022-08-19 08:46] LABS: CREATININE 1.1 mg/dL (0.55-1.3); PHOSPHOROUS 3.2 mg/dL (2.5-4.9)
[2022-08-19 08:48] LABS: BILIRUBIN,TOTAL 1.6 mg/dL (0.2-1); TOT PROT 5.7 g/dl (6.4-8.2)
[2022-08-19] MEDS: METOPROLOL TARTRATE 50 MG TABLET (FP) PO SCH ×2 (09:00→09:38)
[2022-08-19] MEDS ORDERED: CEFTRIAXONE 1 GM in DEXTROSE 5%-WATER - 50 ML IVPB SCH (10:00)
[2022-08-19] MEDS ORDERED: HYDROCHLOROTHIAZIDE 25 MG TABLET (FP) PO SCH (10:00)
[2022-08-19] MEDS ORDERED: GENTAMICIN SO4 80 MG/2 ML VIAL ONE (10:58)
[2022-08-19] MEDS ORDERED: LIDOCAINE HCL 2% 100 MG/5 ML DISP.SYRIN ONE (12:52)
[2022-08-19] MEDS ORDERED: PROPOFOL 20 ML ONE (12:53)
[2022-08-19] MEDS ORDERED: MIDAZOLAM HCL 2 MG/2 ML SINGLE DOSE VIAL ONE (12:53)
[2022-08-19] MEDS ORDERED: ceFAZolin SODIUM 1 GM VIAL ONE (13:19)
[2022-08-19] MEDS ORDERED: KETOROLAC TROMETHAMINE 30 MG/1 ML VIAL ONE (13:19)
[2022-08-19] MEDS ORDERED: DEXAMETHASONE SOD PHOSPHATE 4 MG/1 ML VIAL ONE (13:19)
[2022-08-19] MEDS ORDERED: ceFAZolin SODIUM 1 GM VIAL IVPB ONE (13:40)
[2022-08-19] MEDS ORDERED: GENTAMICIN SO4 80 MG/2 ML VIAL IVPB ONE (13:40)
[2022-08-19] MEDS ORDERED: ONDANSETRON 4 MG/2 ML VIAL IVPUSH PRN ×2 (14:40→15:12)
[2022-08-19] MEDS ORDERED: PROMETHAZINE HCL 25 MG/1 ML VIAL IVPUSH PRN ×2 (14:40→15:12)
[2022-08-19] MEDS ORDERED: LACTATED RINGERS SOLUTION 1,000 ML IV SCH ×2 (14:45→15:12)
[2022-08-19] MEDS ORDERED: KETOROLAC TROMETHAMINE 15 MG/ML VIAL IVPUSH PRN (15:12)
[2022-08-19] MEDS: KETOROLAC TROMETHAMINE 30 MG/1 ML VIAL IVPUSH PRN (18:37)
[2022-08-19] MEDS ORDERED: POLYETHYLENE GLYCOL (HEALTHYLAX) 3350 17 GM PACKET PO SCH (20:00)
[2022-08-19] MEDS ORDERED: ATORVASTATIN CA 40 MG TABLET (FP) PO SCH ×2 (22:00)
[2022-08-19] MEDS ORDERED: METOPROLOL TARTRATE 50 MG TABLET (FP) PO SCH (22:00)
[2022-08-20 00:31] VITALS: RESP 18
[2022-08-20] MEDS: KETOROLAC TROMETHAMINE 30 MG/1 ML VIAL IVPUSH PRN (03:00)
[2022-08-20] MEDS: INSULIN SLIDING SCALE (NOVOLOG) 1 VIAL SQ SCH ×2 (06:00→11:29)
[2022-08-20] MEDS ORDERED: METOPROLOL TARTRATE 50 MG TABLET (FP) PO SCH (08:12)
[2022-08-20] MEDS ORDERED: HYDROCHLOROTHIAZIDE 25 MG TABLET (FP) PO SCH (10:00)
[2022-08-20 10:18] VITALS: BP 134/64; PULSE 51; TEMP 98
[2022-08-20] MEDS ORDERED: TAMSULOSIN HCL 0.4 MG CAP PO SCH ×2 (10:45→11:29)
[2022-08-20] MEDS ORDERED: CEFTRIAXONE 1 GM in DEXTROSE 5%-WATER - 50 ML IVPB SCH (11:00)
[2022-08-21] MEDS ORDERED: levoFLOXacin 750 MG TABLET PO SCH (06:00)
== END 2022-08-20 14:44 | disposition home or self-care (01) ==
LOC: JER 20:27 → JERBED 22:53 → J4S 08-19 02:03
PROVIDERS: ADMIT Internal Medicine; ATTEND Nurse Practitioner Acute Care
PROC: 0TC78ZZ Extirpation of Matter from Left Ureter, Via Natural or Artificial Opening Endoscopic (ICD-10-PCS; principal; 2022-08-18)
PROC: 0T778DZ Dilation of Left Ureter with Intraluminal Device, Via Natural or Artificial Opening Endoscopic (ICD-10-PCS; 2022-08-18)
DX: N13.30 Unspecified hydronephrosis (principal); E11.9 Type 2 diabetes mellitus without complications; Z87.891 Personal history of nicotine dependence; E78.5 Hyperlipidemia, unspecified; I10 Essential (primary) hypertension; N20.0 Calculus of kidney; J30.1 Allergic rhinitis due to pollen
CPT/HCPCS: 36415; 74176-TC; 76000-TC-FY; 80053; 81003; 82360; 82962; 83735; 84100; 85025; 85610; 85730; 86850; 86900; 86901; 87086; 88300-TC; 93005; 93010; 94760; 99285-25; C2617; C9803-CS; G0378; U0003; U0005